=== PATIENT | female | born 1990 | race Caucasian/White ===

== ENCOUNTER 2021-03-30 12:26 | Outpatient (REF) | payer OTHER, SELFPAY ==
[2021-03-30 15:52] LABS: Alanine Aminotransferase 95 U/L (0-31); Anion Gap 14 (12-20); Aspartate Amino Transferase 88 U/L (5-31); Blood Urea Nitrogen 9 mg/dL (9-16); Calcium 9.5 mg/dL (8.4-10.2); Carbon Dioxide 22 mmol/L (22-29); Chloride 108 mmol/L (96-108); Cholesterol 241 mg/dL; Estimated Glomerular Filt Rate > 60; Glucose Fasting 87 mg/dL (60-99); HDL Cholesterol 71 mg/dL; LDL Cholesterol Calculated 129 mg/dl; Potassium 4.4 mmol/L (3.3-5.1); Sodium 140 mmol/L (135-145); Triglycerides 209 mg/dL
[2021-03-30 16:12] LABS: TSH reflex Free T4 0.52 uIU/mL (0.32-4.0); Vitamin D 25-OH Total 31.3 ng/mL (>30)
== END 2021-03-30 12:27 | disposition home or self-care (01) ==
LOC: HO.HMGCLDS 12:26
PROVIDERS: PCP Internal Medicine; Visit Provider Internal Medicine
DX: E66.01 Morbid (severe) obesity due to excess calories (principal); I10 Essential (primary) hypertension
CPT/HCPCS: 36415; 80048; 80061; 82306; 84443; 84450; 84460

== ENCOUNTER 2021-04-09 10:46 | Outpatient (REF) | payer OTHER, SELFPAY ==
[2021-04-10 04:18] LABS: HBc Num1 0.05 S/CO (0.00-0.79); HBsAGNum1 0.16 S/CO (0.00-0.99); Hepatitis B Core Antibody Nonreactive (Nonreactive); Hepatitis B Surface Antigen Negative (Negative); ~Hepatitis C Antibody Nonreactive (Nonreactive)
[2021-04-10 04:23] LABS: HBS Num1 24.43 mIU/mL (0-7.99); ~Hepatitis B Surface Antibody REACTIVE (Nonreactive)
[2021-04-11 12:19] LABS: Hepatitis A Antibody IgM 0.13 Index (0-0.79); ~Hepatitis A Antibody IgM Nonreactive (Nonreactive)
== END 2021-04-09 10:47 | disposition home or self-care (01) ==
LOC: HO.HMGCLDS 10:46
PROVIDERS: PCP Internal Medicine; Visit Provider Nurse Practitioner Family
DX: Z01.84 Encounter for antibody response examination (principal); Z11.59 Encounter for screening for other viral diseases; R74.8 Abnormal levels of other serum enzymes
CPT/HCPCS: 36415; 86704; 86706; 86709; 86803; 87340

== ENCOUNTER 2021-04-25 09:07 | Outpatient (REF) | payer OTHER, SELFPAY ==
--- NOTE | ~2021-04-25 | US_ITS ---
EXAMINATION: US ABDOMEN COMPLETE CLINICAL INFORMATION: Abnormal levels of other serum enzymes. COMPARISON: None TECHNIQUE: Real-time imaging of the abdominal viscera. FINDINGS: PANCREAS: Normal. ABDOMINAL AORTA: The proximal, mid, and distal segments are normal in caliber. INFERIOR VENA CAVA: Visualized portions are normal. LIVER: Normal. The liver is normal in size. The liver contour is normal. Parenchymal echogenicity is normal. No focal hepatic lesion. There is no intrahepatic biliary duct dilatation seen. GALLBLADDER: Normal. The gallbladder is physiologically distended without evidence of stones, sludge, polyps, wall thickening or pericholecystic fluid. COMMON BILE DUCT: Normal in caliber measuring 0.4 cm in diameter. RIGHT KIDNEY: Normal. No hydronephrosis. No renal calculi or focal parenchymal lesions. The kidney measures 10.0 cm in maximum dimension. LEFT KIDNEY: Normal. No hydronephrosis. No renal calculi or focal parenchymal lesions. The kidney measures 10.4 cm in maximum dimension. SPLEEN: Normal. The spleen measures 10.4 cm in maximum dimension. FREE FLUID: None. US/US abdomen complete IMPRESSION: No ultrasound evidence of biliary obstruction. No intra or extrahepatic biliary dilatation. Normal ultrasound.
== END 2021-04-25 09:08 | disposition home or self-care (01) ==
LOC: HO.HMGCX 09:07
PROVIDERS: PCP Internal Medicine; Visit Provider Nurse Practitioner Family
DX: R74.8 Abnormal levels of other serum enzymes (principal)
CPT/HCPCS: 76700

== ENCOUNTER → 2021-05-30 10:59 | Outpatient (BNVA) | payer OTHER, SELFPAY | PROVIDERS: PCP Internal Medicine; Visit Provider Dietitian, Registered | DX: E66.01 Morbid (severe) obesity due to excess calories (principal); Z68.41 Body mass index [BMI] 40.0-44.9, adult | CPT/HCPCS: 97802 ==

== ENCOUNTER → 2021-07-11 09:03 | Outpatient (BNVA) | payer OTHER, SELFPAY | PROVIDERS: PCP Internal Medicine; Visit Provider Dietitian, Registered | DX: E66.01 Morbid (severe) obesity due to excess calories (principal); Z68.41 Body mass index [BMI] 40.0-44.9, adult | CPT/HCPCS: 97803 ==

== ENCOUNTER 2021-07-23 15:55 | Outpatient (REF) | payer OTHER, SELFPAY | END 2021-07-23 15:56 | disposition home or self-care (01) | LOC: HO.LNP 15:55 | PROVIDERS: Visit Provider Physician Assistant | DX: J40 Bronchitis, not specified as acute or chronic (principal); Z20.822 Contact with and (suspected) exposure to COVID-19 | CPT/HCPCS: U0003; U0005 ==

== ENCOUNTER 2022-05-23 09:04 | Outpatient (REF) | payer OTHER, SELFPAY ==
[2022-05-23 12:29] LABS: Alanine Aminotransferase 18 U/L (0-31); Albumin Level 4.3 g/dL (3.5-5.0); Alkaline Phosphatase 112 U/L (39-117); Aspartate Amino Transferase 16 U/L (5-31); Bilirubin Direct 0.2 mg/dL (0.0-0.5); Bilirubin Total 0.4 mg/dL (0.0-1.0); Cholesterol 233 mg/dL; HDL Cholesterol 52 mg/dL; LDL Cholesterol Calculated 149 mg/dl; Total Protein 7.1 g/dL (6.5-8.0); Triglycerides 161 mg/dL
== END 2022-05-23 09:05 | disposition home or self-care (01) ==
LOC: HO.HMGCLDS 09:04
PROVIDERS: PCP Internal Medicine; Visit Provider Internal Medicine
DX: E78.2 Mixed hyperlipidemia (principal); F32.A Depression, unspecified; F41.9 Anxiety disorder, unspecified; R74.8 Abnormal levels of other serum enzymes
CPT/HCPCS: 36415; 80061; 80076

== ENCOUNTER → 2022-05-31 10:37 | Outpatient (BNVA) | payer OTHER, SELFPAY | PROVIDERS: PCP Internal Medicine; Visit Provider Dietitian, Registered | DX: E66.01 Morbid (severe) obesity due to excess calories (principal); Z68.41 Body mass index [BMI] 40.0-44.9, adult | CPT/HCPCS: 97803 ==

== ENCOUNTER → 2022-10-31 12:57 | Outpatient (REF) | payer OTHER, SELFPAY | LOC: HO.SL 12:57 | PROVIDERS: PCP Internal Medicine; Visit Provider Nurse Practitioner Family | DX: G47.33 Obstructive sleep apnea (adult) (pediatric) (principal); G47.19 Other hypersomnia; G47.9 Sleep disorder, unspecified; R06.83 Snoring | CPT/HCPCS: 95806 ==

== ENCOUNTER 2022-11-14 10:01 | Outpatient (REF) | payer OTHER, SELFPAY ==
[2022-11-14 13:41] LABS: Adenovirus F 40/41 Not Detected (Not Detect.); Astrovirus Not Detected (Not Detect.); Campylobacter Not Detected (Not Detect.); Cryptosporidium Not Detected (Not Detect.); Cyclospora cayetanensis Not Detected (Not Detect.); E. coli EAEC Not Detected (Not Detect.); E. coli EPEC Not Detected (Not Detect.); E. coli ETEC Not Detected (Not Detect.); E. coli STEC Not Detected (Not Detect.); Entamoeba histolytica Not Detected (Not Detect.); Giardia lamblia Not Detected (Not Detect.); Norovirus GI/GII Not Detected (Not Detect.); Plesiomonas shigelloides Not Detected (Not Detect.); Rotavirus A Not Detected (Not Detect.); Salmonella Not Detected (Not Detect.); Sapovirus Not Detected (Not Detect.); Shigella sp./EIEC Not Detected (Not Detect.); Vibrio Not Detected (Not Detect.); Vibrio Cholerae Not Detected (Not Detect.); Yersinia enterocolitica Not Detected (Not Detect.)
== END 2022-11-14 10:02 | disposition home or self-care (01) ==
LOC: HO.HMGCLNP 10:01
PROVIDERS: Nurse Practitioner Family; Visit Provider Internal Medicine
DX: R19.7 Diarrhea, unspecified (principal)
CPT/HCPCS: 87507

== ENCOUNTER 2022-12-17 13:30 | Outpatient (REF) | payer OTHER, SELFPAY ==
[2022-12-17 17:23] LABS: Alanine Aminotransferase 18 U/L (0-31); Aspartate Amino Transferase 16 U/L (5-31); Cholesterol 209 mg/dL; Glucose Fasting 96 mg/dL (60-99); HDL Cholesterol 48 mg/dL; LDL Cholesterol Calculated 136 mg/dl; Triglycerides 126 mg/dL
== END 2022-12-17 13:31 | disposition home or self-care (01) ==
LOC: HO.HMGCLDS 13:30
PROVIDERS: PCP Internal Medicine; Visit Provider Internal Medicine
DX: E66.01 Morbid (severe) obesity due to excess calories (principal); E78.2 Mixed hyperlipidemia
CPT/HCPCS: 36415; 80061; 82947; 84450; 84460

== ENCOUNTER 2022-12-17 13:49 | Outpatient (AMB) | payer OTHER, SELFPAY ==
[2022-12-17 14:04] VITALS: BP 94/62; PULSE 87; O2SAT 97; BMI 39.6
--- NOTE | 2022-12-17 14:04 | A.OFFPC_ITS ---
Vital Signs 12/17/22 14:04 Height 5 ft 1 in Weight 210 lb BMI 39.6 BP 94/62 Blood Pressure Location Rt brachial Position Sitting Pulse 87 Pulse Source Pulse Oximeter Pulse Oximetry (%) 97 Oxygen Delivery Method Room Air Intake Visit Reasons: 4 weeks ffup weight after wegovy dose adjustment Intake Note: Pt is here for 4 week f/u weiht after wegovy dose adjustment Allergies No Known Allergies Allergy (Verified 06/02/23 14:19) Medication List - Last Reconciled 12/17/22 by Holly Castillo MD escitalopram oxalate 10 mg PO DAILY escitalopram oxalate 20 mg PO DAILY Wegovy (semaglutide (weight loss)) 1 mg (0.5 mL) subcut QWEEK 30 days NS Tobacco use date assessed: 12/17/22 HPI 4 weeks ffup weight after wegovy dose adjustment HPI Details Here for follow-up regarding weight loss after starting Wegovy, now on 1 mg dose. Patient tolerating medication well, with no complaints of abdominal pain, no nausea, no vomiting. States appetite has been fairly suppressed. Has been following healthy diet. Has been exercising regularly. Has lost another 5 lb in 1 month. [facility] Medical History (Updated 06/03/23 @ 02:02 by Holly Castillo MD) Obesity (BMI 35.0-39.9 without comorbidity) Mild obstructive sleep apnea Sleeping difficulty Snoring Excessive daytime sleepiness Mixed dyslipidemia IBS (irritable bowel syndrome) Generalized anxiety disorder Surgical History [place] teeth extracted Family History Paternal Grandmother Substance use disorder Father Crohn's disease Mother Uterine cancer Social History Housing: House Alcohol intake: current Alcohol intake frequency: holidays/special occasions only Patient Tobacco Use Status: Never used Tobacco e-Cigarette/Vaping Use: Never Used service: No Current occupational status: employed Cognitive needs: No Hearing needs: No Vision needs: No Questionnaire Thrive Questionnaire Date Thrive assessed: 01/15/22 AUDIT C Alcohol Use Questionnaire (AUDIT-C) 1. How often do you have a drink containing alcohol?: Monthly or less 2. How many drinks containing alcohol do you have on a typical day when you are drinking?: 1 or 2 3. How often do you have six or more drinks on one occasion?: Never Total Score: 1 RAMO-7 AMB Questionnaire RAMO-7 Date RAMO - 7 assessed: 05/29/22 Source: Developed by Drs. Dorian Burns, Cuca Costello, Kye Loyola and colleagues, with an educational ruth from [employer]. Review of Systems Const Reports no additional complaints and Denies headache(s) ENT Denies dizziness, Denies headache(s), Denies nasal congestion, Denies nasal discharge and Denies sore throat Card Denies chest pain, Denies lightheadedness and Denies dyspnea Resp Denies chest congestion, Denies cough and Denies dyspnea GI Denies abdominal pain, Denies bloating, Denies change in bowel habits, Denies GI cramping, Reports early satiety, Denies dyspepsia, Denies heartburn and Denies nausea Reports no additional complaints Musc Reports no additional complaints Neuro Denies dizziness and Denies headache(s) Psych Reports no additional complaints Endo Reports no additional complaints Mariano/Lymph Reports no additional complaints Aller/Immun Reports no additional complaints Physical exam (Primary Care) Vital Signs: Last Vital Signs Pulse 87 12/17/22 14:04 BP 94/62 12/17/22 14:04 Pulse Ox 97 12/17/22 14:04 Oxygen Delivery Method Room Air 12/17/22 14:04 BMI result Body Mass Index 39.6 BMI Assessment/Plan discussion: High (Continue with adhering to healthy eating habits, currently on wegovy, started going to the gym twice a week) Tobacco/Smoking Status: Tobacco use Status Tobacco use date assessed 12/17/22 12/17/22 14:10 Patient Tobacco Use Status Never used Tobacco 12/17/22 14:10 e-Cigarette/Vaping Use Never Used 12/17/22 14:10 Thrive Assessment: Date of Thrive Assessment Date Thrive assessed 01/15/22 12/17/22 14:10 Const General: no acute distress and alert Nutritional Appearance: obese Orientation/consciousness: patient oriented x3 HENMT Mouth: Normal oral and palatal mucosa present and moist mucous membranes Eyes General: appearance normal, both eyes and all related structures Neck Neck: Yes full ROM, Yes no lymphadenopathy and Yes supple Resp Effort & Inspection: normal respiratory effort Auscultation: clear to auscultation bilaterally Cardio Rate: regular rate Rhythm: regular rhythm Heart sounds: S1 normal heart sound present and S2 normal heart sound present GI Palpation (GI): Soft to palpation, nontender and no masses Skin General skin exam: no rashes or lesions noted Neuro General: patient oriented x3, gait normal, moves all extremities, Normal light touch and pain sensation and no focal motor deficits Extrem General: Yes normal to inspection, Yes full ROM, Yes no joint enlargement, Yes no clubbing, cyanosis or edema and Yes normal gait Psych Appearance: grossly normal and well kempt Mental Status: mental status grossly normal Speech and movement: Normal speech and movement present Affect: normal affect Assessment and Plan Assessment & Plan (1) Morbid obesity: Code(s): E66.01 - Morbid (severe) obesity due to excess calories Plan: Increased dose of we go week to 1.7 mg subcutaneously given once a week. Continue with adhering to healthy eating habits, and getting regular exercise. Advised to call and let me know in discontinue medication if any CP abdominal pain cramping, nausea, vomiting dizziness, severe headaches occur. Schedule Follow-up in 1 month Medications: Changed From Wegovy administer weeks 9 through 12 of therapy 1 mg (0.5 mL) subcut QWEEK 30 days 2 mL 0RF NS To semaglutide (weight loss) administer weeks 9 through 12 of therapy 1.7 mg (0.75 mL) subcut QWEEK 3.75 mL 0RF 30 days Coding Level of Care Code Est Pt Level 3 (07139) Diagnoses Morbid obesity E66.01
== END 2022-12-17 15:34 | disposition home or self-care (01) ==
LOC: HO.HMGC 13:49
PROVIDERS: PCP Internal Medicine; Visit Provider Internal Medicine
DX: E66.01 Morbid (severe) obesity due to excess calories (principal); Z68.39 Body mass index [BMI] 39.0-39.9, adult
CPT/HCPCS: 99213

== ENCOUNTER 2023-04-10 09:11 | Outpatient (REF) | payer OTHER, SELFPAY ==
[2023-04-10 12:59] LABS: Alanine Aminotransferase 20 U/L (0-31); Albumin Level 4.2 g/dL (3.5-5.0); Alkaline Phosphatase 86 U/L (39-117); Anion Gap 13 (12-20); Aspartate Amino Transferase 38 U/L (5-31); Bilirubin Total 0.5 mg/dL (0.0-1.0); Blood Urea Nitrogen 14 mg/dL (9-16); Calcium 9.4 mg/dL (8.4-10.2); Carbon Dioxide 17 mmol/L (22-29); Chloride 111 mmol/L (96-108); Cholesterol 186 mg/dL; Estimated Glomerular Filt Rate > 60; Glucose Fasting 83 mg/dL (60-99); HDL Cholesterol 46 mg/dL; LDL Cholesterol Calculated 114 mg/dl; Potassium 4.2 mmol/L (3.3-5.1); Sodium 137 mmol/L (135-145); Total Protein 7.1 g/dL (6.5-8.0); Triglycerides 130 mg/dL
== END 2023-04-10 09:12 | disposition home or self-care (01) ==
LOC: HO.HMGCLDS 09:11
PROVIDERS: PCP Internal Medicine; Visit Provider Internal Medicine
DX: E66.01 Morbid (severe) obesity due to excess calories (principal); E78.2 Mixed hyperlipidemia; F32.A Depression, unspecified; F41.1 Generalized anxiety disorder
CPT/HCPCS: 36415; 80053; 80061

== ENCOUNTER 2023-04-15 08:55 | Outpatient (AMB) | payer OTHER, SELFPAY ==
--- NOTE | 2023-04-15 09:09 | MHC.PC.OV ---
Vital Signs 04/15/23 09:10 Height 5 ft 1 in Weight 199 lb BMI 37.6 BP 90/62 Blood Pressure Location Lt brachial Position Sitting Pulse 81 Pulse Source Pulse Oximeter Pulse Oximetry (%) 99 Oxygen Delivery Method Room Air Intake Visit Reasons: weigh check [facility] Intake Note: Pt is here today for her wgt in Allergies No Known Allergies Allergy (Verified 04/15/23 09:18) Medication List - Last Reconciled 04/15/23 by Holly Castillo MD escitalopram oxalate 10 mg PO DAILY escitalopram oxalate 20 mg PO DAILY semaglutide (weight loss) 2.4 mg (0.75 mL) subcut QWEEK 30 days Tobacco use date assessed: 04/15/23 Dental Screening Dental Screen Date: 04/15/23 HPI weigh check in [facility] Details 32-year-old lady with obesity, currently on Wegovy 2.4 mg subcutaneously given weekly, here today for follow-up. She lost approximately 3 lb since her last visit here a month ago. She just started enrolling in the gym and working out twice a week and still is living with her parents would, waiting for her condo to be released, and is having hard time following her diet at her parent parent's house as food is every where , per patient. Tolerating medication well, with no side effects noted. Recent fasting labs done showed lipids, fasting glucose, liver enzymes and electrolytes within normal limits. [facility]LY [facility] Medical History (Updated 04/15/23 @ 09:20 by Holly Castillo MD) Excessive daytime sleepiness Generalized anxiety disorder IBS (irritable bowel syndrome) Mild obstructive sleep apnea Mixed dyslipidemia Morbid obesity Obesity (BMI 35.0-39.9 without comorbidity) Sleeping difficulty Snoring Surgical History [place] teeth extracted Family History Paternal Grandmother Substance use disorder Father Crohn's disease Mother Uterine cancer Social History Housing: House Alcohol intake: current Alcohol intake frequency: holidays/special occasions only Patient Tobacco Use Status: Never used Tobacco e-Cigarette/Vaping Use: Never Used service: No Current occupational status: employed Cognitive needs: No Hearing needs: No Vision needs: No Questionnaire Thrive Questionnaire Date Thrive assessed: 04/15/23 I am a: Patient What is your living situation today?: I have a steady place to live Within the past 12 months, did the food you bought not last and you didn't have the money to get more?: Never true Within the past 12 months, did you worry whether your food would run out before you got money to buy more?: Never true Do you have trouble paying for medicines?: No Do you have trouble getting transportation to medical appointments?: No Do you have trouble paying your heating and electricity bill?: No Do you have trouble taking care of your child, family member or friend?: No Do you have trouble with day-to-day activities such as bathing, preparing meals, shopping, managing finances, etc.?: No Are you currently unemployed and looking for a job?: No Are you interested in more education?: No RAMO-7 AMB Questionnaire RAMO-7 Date RAMO - 7 assessed: 05/29/22 Source: Developed by Drs. Dorian Burns, Cuca Costello, Kye Loyola and colleagues, with an educational ruth from [employer]. Review of Systems Const All systems reviewed & are unremarkable except as noted in HPI and below Denies fatigue, Denies fever(s) and Denies lethargy ENT Denies dizziness, Denies nasal congestion, Denies nasal discharge and Denies sore throat Card Denies chest pain, Denies lightheadedness and Denies dyspnea Resp Denies chest congestion, Denies cough and Denies dyspnea GI Denies abdominal pain, Denies change in bowel habits, Denies dyspepsia, Denies heartburn and Denies nausea Musc Reports no additional complaints Neuro Denies dizziness Psych Reports no additional complaints Endo Denies fatigue Physical exam (Primary Care) Vital Signs: Last Vital Signs Pulse 81 04/15/23 09:10 BP 90/62 04/15/23 09:10 Pulse Ox 99 04/15/23 09:10 Oxygen Delivery Method Room Air 04/15/23 09:10 BMI result Body Mass Index 37.6 BMI Assessment/Plan discussion: High (Continue with adhering to healthy eating habits, currently on wegovy, started going to the gym twice a week) Tobacco/Smoking Status: Tobacco use Status Tobacco use date assessed 04/15/23 04/15/23 09:15 Patient Tobacco Use Status Never used Tobacco 04/15/23 09:15 e-Cigarette/Vaping Use Never Used 04/15/23 09:15 Thrive Assessment: Date of Thrive Assessment Date Thrive assessed 01/15/22 04/15/23 09:15 Const General: no acute distress and alert Nutritional Appearance: obese Orientation/consciousness: patient oriented x3 HENMT Mouth: Normal oral and palatal mucosa present and moist mucous membranes Eyes General: appearance normal, both eyes and all related structures Neck Neck: Yes full ROM, Yes no lymphadenopathy and Yes supple Resp Effort & Inspection: normal respiratory effort Auscultation: clear to auscultation bilaterally Cardio Rate: regular rate Rhythm: regular rhythm Heart sounds: S1 normal heart sound present and S2 normal heart sound present GI Palpation (GI): Soft to palpation, nontender and no masses Auscultation: normal bowel sounds Neuro General: patient oriented x3, gait normal, moves all extremities, Normal light touch and pain sensation and no focal motor deficits Results Reviewed Results Reviewed: ENTERED: 04/10/[address]: ORDERED: CMP Fast, Lipid Panel Test Result Flag Reference Site Sodium 137 135-145 mmol/L Potassium 4.2 3.3-5.1 mmol/L CL 111 H 96-108 mmol/L CO2 17 L 22-29 mmol/L Gap 13 12-20 BUN 14 9-16 mg/dL Creat 0.83 0.5-1.4 mg/dL EGFR > 60 NOTE: For -Serbian individuals, multiply the result by 1.210. Chronic Kidney Disease: Estimated GFR < 60 mL/min/1.73m2 Severe Kidney Disease: Estimated GFR < 15 mL/min/1.73m2 FBS 83 60-99 mg/dL CA 9.4 8.4-10.2 mg/dL Total Bili 0.5 0.0-1.0 mg/dL AST (GOT) 38 H 5-31 U/L ALT (GPT) 20 0-31 U/L Protein, Total 7.1 6.5-8.0 g/dL Alb 4.2 3.5-5.0 g/dL Triglyceride 130 mg/dL Desirable Triglyceride: less than 150 mg/dL Borderline High Triglyceride 150-199 mg/dL High Triglyceride: 200-499 mg/dL Very High Triglyceride: greater than or equal to 5OO mg/dL Chol 186 mg/dL Desirable Cholesterol: less than 200 mg/dL Borderline High Cholesterol: 200-239 mg/dL High Cholesterol: greater than 239 mg/dL LDL Calculated 114 mg/dl Desirable LDL: less than 100 mg/dL Near Optimal/Above Optimal LDL: 110-129 mg/dL Borderline High LDL: 130-159 mg/dL High LDL: 160-189 mg/dL Very High LDL: greater than or equal to 190 mg/dL HDL 46 mg/dL Desirable HDL: greater than 40 mg/dL Note: This HDL assay may give artificially low results in patients with liver disease. Alk Phos 86 39-117 U/L Assessment and Plan Assessment & Plan (1) Obesity (BMI 35.0-39.9 without comorbidity): Code(s): E66.9 - Obesity, unspecified Plan: Continue on Wegovy 2.4 mg subcutaneously given weekly, in addition to adhering to healthy eating habits and getting regular exercise, just started going to the gym twice a week. Will see her back for her physical scheduled for 06/04/2023 Coding Level of Care Code Est Pt Level 3 (19812) Diagnoses Obesity (BMI 35.0-39.9 without comorbidity) E66.9
[2023-04-15 09:10] VITALS: BP 90/62; PULSE 81; O2SAT 99; BMI 37.6
== END 2023-04-15 10:13 | disposition home or self-care (01) ==
PROVIDERS: PCP Internal Medicine; Visit Provider Internal Medicine
DX: E66.9 Obesity, unspecified (principal); Z68.37 Body mass index [BMI] 37.0-37.9, adult
CPT/HCPCS: 99213

== ENCOUNTER 2023-05-29 08:54 | Outpatient (AMB) | payer OTHER, SELFPAY ==
--- NOTE | 2023-05-29 08:59 | A.OFFVIS_ITS ---
Intake Vital Signs 05/29/23 09:01 Weight 195 lb BP 118/72 Blood Pressure Location Lt brachial Position Sitting Pulse 71 Pulse Source Pulse Oximeter Pulse Oximetry (%) 95 Oxygen Delivery Method Room Air Intake Visit Reasons: follow up - LVM Intake Note: F/U Sleep issues Manager Radio Required: No Allergies No Known Allergies Allergy (Verified 05/29/23 09:00) HPI HPI Comments History of Present Illness Details 32 y/o female patient presents for follo w up of sleep study. The home sleep study result was significant for a mild degree of sleep apnea. The AHI was 5/hr and oxygen venessa was 85%. Pt reports that she sleeps ok, about 6-7 hrs, but feels tired all the time. She goes to bed around 9 pm but takes time to fall asleep. She watches TV and uses phone before bedtime. She is on Wegovy, and lost more than 30 lb over the last 6 months. REPLACED BY [facility] Medical History Obesity (BMI 35.0-39.9 without comorbidity) Mild obstructive sleep apnea Sleeping difficulty Snoring Excessive daytime sleepiness Mixed dyslipidemia IBS (irritable bowel syndrome) Morbid obesity Generalized anxiety disorder Surgical History [place] teeth extracted Family History Paternal Grandmother Substance use disorder Father Crohn's disease Mother Uterine cancer Social History Housing: House Alcohol intake: current Alcohol intake frequency: holidays/special occasions only Patient Tobacco Use Status: Never used Tobacco e-Cigarette/Vaping Use: Never Used service: No Current occupational status: employed Cognitive needs: No Hearing needs: No Vision needs: No Review of Systems Const All systems reviewed & are unremarkable except as noted in HPI and below ENT Reports Normal hearing present Neuro Reports Normal hearing present Physical Exam Vital Signs: Last Vital Signs Pulse 71 05/29/23 09:01 BP 118/72 05/29/23 09:01 Pulse Ox 95 05/29/23 09:01 Oxygen Delivery Method Room Air 05/29/23 09:01 Const General: cooperative and comfortable Nutritional Appearance: obese Orientation/consciousness: patient oriented x3 Limitations: no limitations HEENT Teeth and gingiva: other (mallampati grade 4) Neck Neck: Yes full ROM and Yes supple Resp Effort & Inspection: normal respiratory effort and able to speak in complete sentences Neuro General: patient oriented x3, gait normal and moves all extremities Cranial nerves: Yes Bilaterally intact EOM present, Yes Normal facial strength present, Yes Midline tongue present, Yes Symmetric palate elevation present, Yes Normal hearing present, Yes Ability to bilaterally rotate head present and Yes Ability to bilaterally elevate shoulders present Cognition (Neuro): normal cognition Gait exam (Neuro): Normal gait present Psych Appearance: grossly normal Mental Status: mental status grossly normal Speech and movement: Normal speech and movement present Affect: normal affect Attitude: cooperative Assessment & Plan Assessment & Plan (1) Excessive daytime sleepiness: Code(s): G47.19 - Other hypersomnia (2) LOTTIE (obstructive sleep apnea): Comment: Mild degree of sleep apnea. The AHI was 5/hr and oxygen venessa was 85% Code(s): G47.33 - Obstructive sleep apnea (adult) (pediatric) Plan Advised patient to start APAP [id number]. Advised patient to intake enough protein, and try magnesium glycinate 200 mg-400 mg qHS. May try vitamin D3 supplement for fatigue. Coding Level of Care Code Est Pt Level 3 (77826) Diagnoses Excessive daytime sleepiness G47.19 LOTTIE (obstructive sleep apnea) G47.33
[2023-05-29 09:01] VITALS: BP 118/72; PULSE 71; O2SAT 95
== END 2023-05-29 09:19 | disposition home or self-care (01) ==
PROVIDERS: PCP Internal Medicine; Visit Provider Nurse Practitioner Family
DX: G47.19 Other hypersomnia (principal); G47.33 Obstructive sleep apnea (adult) (pediatric)
CPT/HCPCS: 99213

== ENCOUNTER → 2023-05-29 08:54 | Outpatient (BNVA) | payer OTHER, SELFPAY | PROVIDERS: PCP Internal Medicine; Visit Provider Nurse Practitioner Family ==

== ENCOUNTER 2023-06-02 13:29 | Outpatient (AMB) | payer OTHER, SELFPAY ==
--- NOTE | 2023-06-02 14:08 | A.OFFPC_ITS ---
Vital Signs 06/02/23 14:09 Height 5 ft 1 in Weight 196 lb BMI 37.0 BP 94/64 Blood Pressure Location Lt brachial Position Sitting Pulse 67 Pulse Source Pulse Oximeter Pulse Oximetry (%) 98 Oxygen Delivery Method Room Air Intake Visit Reasons: PE Intake Note: Pt is here today for her PE Is last menstrual period known: Yes Last menstrual period: 05/30/23 Allergies No Known Allergies Allergy (Verified 06/02/23 14:19) Medication List - Last Reconciled 06/02/23 by Holly Castillo MD escitalopram oxalate 10 mg PO DAILY escitalopram oxalate 20 mg PO DAILY semaglutide (weight loss) 2.4 mg (0.75 mL) subcut QWEEK 30 days Tobacco use date assessed: 06/02/23 Dental Screening Dental Screen Date: 06/02/23 Did you have a dental visit in the last 12 months?: Yes Did you have a dental problem in the last 6 months where you did not have access to dental care?: No Was dental information given to patient?: Patient has dentist HPI PE HPI Details 32-year-old lady with obesity, and mixed dyslipidemia and generalized anxiety disorder, here today for her physical exam. She is currently being seen at the sleep clinic in [place] for evaluation of her obstructive sleep apnea, still having difficulty with sleeping and wakes up not feeling rested. She continues to be on we go be, but her weight loss has started to level off despite getting regular exercise, works with a equestrian trainer and following recommended diet. She sees [facility] and is up-to-date with her cervical cancer screening and Pap smear. [facility] Medical History (Updated 06/03/23 @ 02:02 by Holly Castillo MD) Obesity (BMI 35.0-39.9 without comorbidity) Mild obstructive sleep apnea Sleeping difficulty Snoring Excessive daytime sleepiness Mixed dyslipidemia IBS (irritable bowel syndrome) Generalized anxiety disorder Surgical History [place] teeth extracted Family History Paternal Grandmother Substance use disorder Father Crohn's disease Mother Uterine cancer Social History Housing: House Alcohol intake: current Alcohol intake frequency: holidays/special occasions only Patient Tobacco Use Status: Never used Tobacco e-Cigarette/Vaping Use: Never Used service: No Current occupational status: employed Cognitive needs: No Hearing needs: No Vision needs: No Female Reproductive History Menstrual Date of last menstrual period: 05/30/23 Questionnaire PHQ-9 Over the last 2 weeks, how often have you been bothered by any of the following problems? 1. Little interest or pleasure in doing things: not at all 2. Feeling down, depressed, or hopeless: not at all 3. Trouble falling or staying asleep, or sleeping too much: several days 4. Feeling tired or having little energy: not at all 5. Poor appetite or overeating: not at all 6. Feeling bad about yourself - or that you are a failure or have let yourself or your family down: not at all 7. Trouble concentrating on things, such as reading the newspaper or watching television: not at all 8. Moving or speaking so slowly that other people could have noticed. Or the op posite - being so fidgety or restless that you have been moving around a lot more than usual: not at all 9. Thoughts that you would be better off or of hurting yourself in some way: not at all Total score: 1 Depression Screening Interpretation: Positive Depression Screening Follow-up: Existing condition and In treatment Source: Developed by Drs. Dorian Burns, Cuca Costello, Kye Loyola and colleagues, with an educational ruth from [employer] Thrive Questionnaire Date Thrive assessed: 04/15/23 AUDIT C Alcohol Use Questionnaire (AUDIT-C) 1. How often do you have a drink containing alcohol?: Never Total Score: 0 RAMO-7 AMB Questionnaire RAMO-7 Date RAMO - 7 assessed: 06/02/23 Feeling nervous, anxious, or on edge: 0 = Not at all Not being able to stop or control worryin = Not at all Worrying too much about different things: 0 = Not at all Trouble relaxin = Not at all Being so restless that it is hard to sit still: 0 = Not at all Becoming easily annoyed or irritable: 0 = Not at all Feeling afraid as if something awful might happen: 0 = Not at all Total RAMO-7 score (0-4 normal; 5-9 mild; 10-14 moderate; 15-21 severe): 0 Source: Developed by Drs. Dorian Burns, Cuca Costello, Kye Loyola and colleagues, with an educational ruth from [employer] RAMO-7 Assessment Billing RAMO-7 Assessment Tool: RAMO-7 Assessment 01600 Review of Systems Const Reports no additional complaints and Denies headache(s) Eyes Denies change in vision ENT Denies dizziness, Denies headache(s), Denies nasal congestion, Denies nasal discharge and Denies sore throat Card Denies chest pain, Denies lightheadedness and Denies dyspnea Resp Denies chest congestion, Denies cough and Denies dyspnea GI Denies abdominal pain, Denies change in bowel habits, Denies dyspepsia, Denies heartburn and Denies nausea Reports no additional complaints Musc Reports no additional complaints Skin/Breast Denies breast pain, Denies breast mass and Denies rash Neuro Denies dizziness and Denies headache(s) Psych Reports no additional complaints Endo Reports no additional complaints Mariano/Lymph Reports no additional complaints Aller/Immun Reports no additional complaints Physical exam (Primary Care) Vital Signs: Last Vital Signs Pulse 67 06/02/23 14:09 BP 94/64 06/02/23 14:09 Pulse Ox 98 06/02/23 14:09 Oxygen Delivery Method Room Air 06/02/23 14:09 BMI result Body Mass Index 37.0 BMI Assessment/Plan discussion: High (Continue with adhering to healthy eating habits, currently on wegovy, started going to the gym twice a week) Tobacco/Smoking Status: Tobacco use Status Tobacco use date assessed 06/02/23 06/02/23 14:13 Patient Tobacco Use Status Never used Tobacco 06/02/23 14:13 e-Cigarette/Vaping Use Never Used 06/02/23 14:13 Depression Screening Interpretation: Positive Depression Screening Follow-up: Existing condition and In treatment Thrive Assessment: Date of Thrive Assessment Date Thrive assessed 04/15/23 06/02/23 14:13 Const General: no acute distress and alert Nutritional Appearance: obese Orientation/consciousness: patient oriented x3 HENMT Mouth: Normal oral and palatal mucosa present and moist mucous membranes Eyes General: appearance normal, both eyes and all related structures Neck Neck: Yes full ROM, Yes no lymphadenopathy and Yes supple Resp Effort & Inspection: normal respiratory effort Auscultation: clear to auscultation bilaterally Cardio Rate: regular rate Rhythm: regular rhythm Heart sounds: S1 normal heart sound present and S2 normal heart sound present GI Palpation (GI): Soft to palpation, nontender and no masses Auscultation: normal bowel sounds General: Yes no CVA tenderness and Yes deferred (Sees [facility]) Back/Spine/Pelvis Back: no CVA tenderness and No back tenderness Skin General skin exam: no rashes or lesions noted Neuro General: patient oriented x3, gait normal, moves all extremities, Normal light touch and pain sensation and no focal motor deficits Extrem General: Yes normal to inspection, Yes full ROM, Yes no joint enlargement, Yes no clubbing, cyanosis or edema and Yes normal gait Psych Appearance: grossly normal and well kempt Mental Status: mental status grossly normal Speech and movement: Normal speech and movement present Affect: normal affect Results Reviewed Results Reviewed: RUN: 06/02/23 1413 PAGE 1 [facility] [address] [place] [id number] Active Directory Systems Administrator: Charlie Hairston M.D. Specimen Inquiry Name: Beverley Martínez Age/Sex: 32/F : 1990 Unit#: [id number] Attend Dr: Holly Castillo MD Re04/10/23 Status: DEP [facility] Disch: SPEC : [id number] NOAH: 04/10/23 STATUS: COMP REQ : [id number] RECD: 04/10/[address]: Holly Castillo MD COMP: 04/10/231259 ENTERED: 04/10/[address]: ORDERED: CMP Fast, Lipid Panel Test Result Flag Reference Site Sodium 137 135-145 mmol/L Potassium 4.2 3.3-5.1 mmol/L CL 111 H 96-108 mmol/L CO2 17 L 22-29 mmol/L Gap 13 12-20 BUN 14 9-16 mg/dL Creat 0.83 0.5-1.4 mg/dL EGFR > 60 NOTE: For -[place] individuals, multiply the result by 1.210. Chronic Kidney Disease: Estimated GFR < 60 mL/min/1.73m2 Severe Kidney Disease: Estimated GFR < 15 mL/min/1.73m2 FBS 83 60-99 mg/dL CA 9.4 8.4-10.2 mg/dL Total Bili 0.5 0.0-1.0 mg/dL AST (GOT) 38 H 5-31 U/L ALT (GPT) 20 0-31 U/L Protein, Total 7.1 6.5-8.0 g/dL Alb 4.2 3.5-5.0 g/dL Triglyceride 130 mg/dL Desirable Triglyceride: less than 150 mg/dL Borderline High Triglyceride 150-199 mg/dL High Triglyceride: 200-499 mg/dL Very High Triglyceride: greater than or equal to 5OO mg/dL Chol 186 mg/dL Desirable Cholesterol: less than 200 mg/dL Borderline High Cholesterol: 200-239 mg/dL High Cholesterol: greater than 239 mg/dL LDL Calculated 114 mg/dl Desirable LDL: less than 100 mg/dL Near Optimal/Above Optimal LDL: 110-129 mg/dL Borderline High LDL: 130-159 mg/dL High LDL: 160-189 mg/dL Very High LDL: greater than or equal to 190 mg/dL HDL 46 mg/dL Desirable HDL: greater than 40 mg/dL Note: This HDL assay may give artificially low results in patients with liver disease. Alk Phos 86 39-117 U/L Assessment and Plan Assessment & Plan (1) LOTTIE (obstructive sleep apnea): Comment: Mild degree of sleep apnea. The AHI was 5/hr and oxygen venessa was 85% Code(s): G47.33 - Obstructive sleep apnea (adult) (pediatric) Plan: [place] [facility] [place] (2) Obesity (BMI 35.0-39.9 without comorbidity): Code(s): E66.9 - Obesity, unspecified Plan: Continue with go be, in addition to adhering to recommended diet and regular exercise (3) Mixed dyslipidemia: Code(s): E78.2 - Mixed hyperlipidemia Plan: Reviewed recent fasting lipid profile with patient with levels within normal limits . Continue with adherence to low-cholesterol diet and regular exercise, at least 30 minutes 3 to 4 times a week. Advised patient to make healthy food choices, eat more fruits, vegetables, whole grains, wild caught fish and low-fat dairy. Limit amount of meat and fried or fatty food products, as well as processed foods and fast foods. (4) Generalized anxiety disorder: Code(s): F41.1 - Generalized anxiety disorder Plan: Stable controlled on escitalopram (5) Annual visit for general adult medical examination with abnormal findings: Code(s): Z00.01 - Encounter for general adult medical examination with abnormal findings Plan: Reviewed recent fasting labs results patient. Continue with regular dental visit every 6 months and regular eye exams, at least every 2 years. Take adequate calcium in diet and vitamin-D 3 at 2000 IU per cap once a day, in addition to weight-bearing exercises to help maintain good muscle tone and weight control. Instructed to do self-breast exam, up-to-date with her cervical cancer screening and pelvic exam, goes to [facility].. Reminded to get her flu shot, this year as well as her COVID booster, up-to-date with Tdap Coding Level of Care Code Est Pt Prev Care 18-39y(95396) Diagnoses LOTTIE (obstructive sleep apnea) G47.33 Obesity (BMI 35.0-39.9 without comorbidity) E66.9 Mixed dyslipidemia E78.2 Generalized anxiety disorder F41.1 Annual visit for general adult medical examination with abnormal findings Z00.01 Additional Codes RAMO-7 Assessment Billing - RAMO-7 Assessment Tool: RAMO-7 Assessment 75299 ([id number])
[2023-06-02 14:09] VITALS: BP 94/64; PULSE 67; O2SAT 98; BMI 37.0
== END 2023-06-02 16:09 | disposition home or self-care (01) ==
PROVIDERS: Visit Provider Internal Medicine
DX: Z00.00 Encounter for general adult medical examination without abnormal findings (principal); G47.33 Obstructive sleep apnea (adult) (pediatric); E66.9 Obesity, unspecified; Z68.37 Body mass index [BMI] 37.0-37.9, adult; E78.2 Mixed hyperlipidemia; F41.1 Generalized anxiety disorder
CPT/HCPCS: 99395

== ENCOUNTER 2023-12-01 10:49 | Outpatient (AMB) | payer OTHER, SELFPAY ==
[2023-12-01 11:36] VITALS: BP 98/68; PULSE 98; O2SAT 97; BMI 34.8
--- NOTE | 2023-12-01 11:36 | MHC.PC.OV ---
Vital Signs 12/01/23 11:36 Height 5 ft 1 in Weight 184 lb BMI 34.8 BP 98/68 Blood Pressure Location Rt brachial Position Sitting Pulse 98 Pulse Source Pulse Oximeter Pulse Oximetry (%) 97 Oxygen Delivery Method Room Air Intake Visit Reasons: 6 month follow up Allergies No Known Allergies Allergy (Verified 12/01/23 11:55) Medication List - Last Reconciled 12/01/23 by Holly Castillo MD escitalopram oxalate 20 mg PO DAILY escitalopram oxalate 10 mg PO DAILY magnesium glycinate mg PO semaglutide (weight loss) 2.4 mg (0.75 mL) subcut QWEEK 30 days Tobacco use date assessed: 12/01/23 Dental Screening Dental Screen Date: 12/01/23 Did you have a dental visit in the last 12 months?: Yes Did you have a dental problem in the last 6 months where you did not have access to dental care?: No Was dental information given to patient?: Patient has dentist HPI 6 month follow up HPI Details 32-year-old lady here today for follow-up. Currently on Wegovy 2.4 mg injected once weekly, started 07/18/2022, has lost about 12 lb since last seen May 2023. Tolerating medication well, with no adverse effects reported. Is also here complaining of pain in her left ear accompanied by nasal congestion, rhinorrhea and postnasal drip, present for the last 10 days. Has been taking akoy-zeb-tupvcut DayQuil/ NyQuil with no improvement of symptoms. Denies having any fever, no chills, no shortness of breath, no facial pain . [facility] Medical History Obesity (BMI 35.0-39.9 without comorbidity) Mild obstructive sleep apnea Sleeping difficulty Snoring Excessive daytime sleepiness Mixed dyslipidemia IBS (irritable bowel syndrome) Generalized anxiety disorder Surgical History [place] teeth extracted Family History Paternal Grandmother Substance use disorder Father Crohn's disease Mother Uterine cancer Social History Housing: House Alcohol intake: current Alcohol intake frequency: holidays/special occasions only Patient Tobacco Use Status: Never used Tobacco e-Cigarette/Vaping Use: Never Used service: No Current occupational status: employed Cognitive needs: No Hearing needs: No Vision needs: No Questionnaire Thrive Questionnaire Date Thrive assessed: 04/15/23 RAMO-7 AMB Questionnaire RAMO-7 Date RAMO - 7 assessed: 06/02/23 Source: Developed by Drs. Dorian Burns, Cuca Costello, Kye Loyola and colleagues, with an educational ruht from [employer]. Review of Systems Const Reports weight loss Eyes Denies change in vision ENT Reports as per HPI and Reports otalgia (Left) Card Reports no additional complaints Resp Reports as per HPI and Denies cough GI Reports no additional complaints Physical exam (Primary Care) Vital Signs: Last Vital Signs Pulse 98 12/01/23 11:36 BP 98/68 12/01/23 11:36 Pulse Ox 97 12/01/23 11:36 Oxygen Delivery Method Room Air 12/01/23 11:36 BMI result Body Mass Index 34.8 Tobacco/Smoking Status: Tobacco use Status Tobacco use date assessed 12/01/23 12/01/23 11:40 Patient Tobacco Use Status Never used Tobacco 12/01/23 11:40 e-Cigarette/Vaping Use Never Used 12/01/23 11:40 Thrive Assessment: Date of Thrive Assessment Date Thrive assessed 04/15/23 12/01/23 11:40 Const General: no acute distress and alert Nutritional Appearance: obese Orientation/consciousness: patient oriented x3 HENMT Other: Erythema and mild swelling in left external auditory canal, mildly erythematous and bulging tympanic membrane on the left, no cerumen or discharge seen Head: Yes normocephalic General nose exam: Normal external nose present, Normal nares present, No nasal discharge present and Abnormal mucous membranes and turbinates present erythematous bilateral Face and sinus: No sinus tenderness Mouth: Normal oral and palatal mucosa present, oropharynx normal and moist mucous membranes Eyes General: appearance normal, both eyes and all related structures Neck Neck: Yes full ROM, Yes no lymphadenopathy and Yes supple Resp Auscultation: clear to auscultation bilaterally Cardio Other: S1-S2 present regular rate and rhythm GI Inspection: Yes normal to inspection Palpation (GI): Soft to palpation, nontender and no masses Neuro General: patient oriented x3 Psych Appearance: grossly normal and well kempt Mental Status: mental status grossly normal Speech and movement: Normal speech and movement present Affect: normal affect Assessment and Plan Assessment & Plan (1) Obesity (BMI 35.0-39.9 without comorbidity): Code(s): E66.9 - Obesity, unspecified Plan: Has been compliant with diet, exercise, has lost approximately 12 lb since last visit in May 2023, will continue on Wegovy at 2.4 mg , advised to try decreasing dosing frequency to every 2 weeks, goal weight is at least 170 lbs. (2) Acute otitis media: Code(s): H66.90 - Otitis media, unspecified, unspecified ear Qualifiers: Otitis media type: unspecified Qualified Code(s): H66.90 - Otitis media, unspecified, unspecified ear Plan: Prescription sent for Augmentin 875 mg to take 1 every 12 hours for 10 days, take it with food. Advised to try taking for fexofenadine-pseudoephedrine 60-120 mg tablet 1 tablet once a day in a.m. as needed for nasal congestion, return to clinic if no improvement of symptoms after a week Medications: New amoxicillin-pot clavulanate 875-125 mg 1 tab PO Q12H 10 days 20 tabs 0RF fexofenadine-pseudoephedrine 60-120 mg ER (Allergy Relief-D (fexofenadine)) 1 tab PO Q12H PRN 14 tabs 0RF allergy symptoms/nasal congestion Refilled semaglutide (weight loss) administer weeks 9 through 12 of therapy 2.4 mg (0.75 mL) subcut QWEEK 30 days 3.75 mL 3RF Coding Level of Care Code Est Pt Level 4 (08368) Diagnoses Obesity (BMI 35.0-39.9 without comorbidity) E66.9 Acute otitis media, unspecified otitis media type H66.90 Otitis media type: unspecified
== END 2023-12-01 16:33 | disposition home or self-care (01) ==
PROVIDERS: PCP Internal Medicine; Visit Provider Internal Medicine
DX: H66.90 Otitis media, unspecified, unspecified ear (principal); E66.9 Obesity, unspecified; Z68.34 Body mass index [BMI] 34.0-34.9, adult
CPT/HCPCS: 99214

== ENCOUNTER 2024-06-15 10:46 | Outpatient (AMB) | payer OTHER, SELFPAY ==
--- NOTE | 2024-06-15 11:05 | A.OFFPC_ITS ---
Vital Signs 06/15/24 11:27 Height 5 ft 1 in Weight 181 lb BMI 34.2 BP 94/62 Blood Pressure Location Lt brachial Position Sitting Pulse 70 Pulse Source Pulse Oximeter Pulse Oximetry (%) 97 Oxygen Delivery Method Room Air Intake Visit Reasons: PE Intake Note: Pt is here today for her PE Is last menstrual period known: Yes Last menstrual period: 06/02/24 Allergies No Known Allergies Allergy (Verified 12/01/23 11:55) Medication List - Last Reconciled 06/17/24 by Holly Castillo MD escitalopram oxalate 20 mg PO DAILY escitalopram oxalate 10 mg PO DAILY ropinirole 0.25 mg PO BEDTIME semaglutide (weight loss) 2.4 mg (0.75 mL) subcut QWEEK 30 days Tobacco use date assessed: 06/15/24 Dental Screening Dental Screen Date: 06/15/24 Did you have a dental visit in the last 12 months?: Yes Did you have a dental problem in the last 6 months where you did not have access to dental care?: No Was dental information given to patient?: Patient has dentist HPI PE HPI Details 33-year-old lady here today for physical exam. She is currently taking semaglutide for help with weight loss. Has lost approximately 56 lb since starting medication but has now plateaued with her weight. She takes escitalopram for her generalized anxiety disorder which has been helping. She had a sleep study which was inconclusive for sleep apnea. However complains of disturbed sleep as her legs start aching and she has to keep moving them at night. She sees her Ob at [facility] for her routine Pap and pelvic exam. [facility] Medical History (Updated 06/15/24 @ 12:02 by Holly Castillo MD) Restless leg syndrome Obesity (BMI 35.0-39.9 without comorbidity) Mild obstructive sleep apnea Sleeping difficulty Snoring Excessive daytime sleepiness Mixed dyslipidemia IBS (irritable bowel syndrome) Generalized anxiety disorder Surgical History Pom[place] teeth extracted Family History Paternal Grandmother Substance use disorder Father Crohn's disease Mother Uterine cancer Social History Housing: House Alcohol intake: current Alcohol intake frequency: holidays/special occasions only Patient Tobacco Use Status: Never used Tobacco e-Cigarette/Vaping Use: Never Used service: No Current occupational status: employed Cognitive needs: No Hearing needs: No Vision needs: No Female Reproductive History Menstrual Date of last menstrual period: 06/02/24 Questionnaire PHQ-9 Over the last 2 weeks, how often have you been bothered by any of the following problems? 1. Little interest or pleasure in doing things: not at all 2. Feeling down, depressed, or hopeless: not at all 3. Trouble falling or staying asleep, or sleeping too much: not at all 4. Feeling tired or having little energy: nearly every day 5. Poor appetite or overeating: not at all 6. Feeling bad about yourself - or that you are a failure or have let yourself or your family down: not at all 7. Trouble concentrating on things, such as reading the newspaper or watching television: not at all 8. Moving or speaking so slowly that other people could have noticed. Or the opposite - being so fidgety or restless that you have been moving around a lot more than usual: not at all 9. Thoughts that you would be better off or of hurting yourself in some way: not at all Total score: 3 Depression Screening Interpretation: Negative Depression Screening Done: Yes 45538 - PHQ-9 Billing: Yes Source: Developed by Drs. Dorian Burns, Cuca Costello, Kye Loyola and colleagues, with an educational ruth from [employer]. Thrive Questionnaire Date Thrive assessed: 06/15/24 I am a: Patient What is your living situation today?: I have a steady place to live Within the past 12 months, did the food you bought not last and you didn't have the money to get more?: Never true Within the past 12 months, did you worry whether your food would run out before you got money to buy more?: Never true Do you have trouble paying for medicines?: No Do you have trouble getting transportation to medical appointments?: No Do you have trouble paying your heating and electricity bill?: No Do you have trouble taking care of your child, family member or friend?: No Do you have trouble with day-to-day activities such as bathing, preparing meals, shopping, managing finances, etc.?: No Are you interested in more education?: No Please select the resources that you would like help with: None Currently or been in a relationship where the following occur: No concerns reported THRIVE Score: 0 AUDIT C Alcohol Use Questionnaire (AUDIT-C) 1. How often do you have a drink containing alcohol?: 2-4 times a month 2. How many drinks containing alcohol do you have on a typical day when you are drinking?: 1 or 2 3. How often do you have six or more drinks on one occasion?: Never Total Score: 2 RAMO-7 AMB Questionnaire RAMO-7 Date RAMO - 7 assessed: 06/15/24 Feeling nervous, anxious, or on edge: 1 = Several days Not being able to stop or control worryin = Several days Worrying too much about different things: 1 = Several days Trouble relaxin = Not at all Being so restless that it is hard to sit still: 0 = Not at all Becoming easily annoyed or irritable: 1 = Several days Feeling afraid as if something awful might happen: 0 = Not at all Total RAMO-7 score (0-4 normal; 5-9 mild; 10-14 moderate; 15-21 severe): 4 Source: Developed by Drs. Dorian Burns, Cuca Costello, Kye Loyola and colleagues, with an educational ruth from [employer]. RAMO-7 Assessment Billing RAMO-7 Assessment Tool: RAMO-7 Assessment 36576 Review of Systems Const Reports no additional complaints, Denies fatigue, Denies headache(s) and Denies weakness Eyes Denies change in vision and Denies itchy eyes ENT Denies dizziness and Denies headache(s) Card Reports no additional complaints and Denies palpitations Resp Denies cough and Denies wheezing GI Reports no additional complaints Denies hematuria, Denies urinary frequency, Denies dysuria and Denies urinary urgency Musc Reports no additional complaints Skin/Breast Denies breast pain, Denies breast mass, Denies lesions and Denies rash Neuro Denies dizziness, Denies headache(s) and Denies weakness Psych Reports no additional complaints Endo Denies fatigue, Denies polydipsia, Denies polyuria and Denies palpitations Mariano/Lymph Denies easy bruising Aller/Immun Denies itchy eyes, Denies seasonal rhinorrhea and Denies wheezing Physical exam (Primary Care) Vital Signs: Last Vital Signs Pulse 70 06/15/24 11:27 BP 94/62 06/15/24 11:27 Pulse Ox 97 06/15/24 11:27 Oxygen Delivery Method Room Air 06/15/24 11:27 BMI result Body Mass Index 34.2 Tobacco/Smoking Status: Tobacco use Status Tobacco use date assessed 06/15/24 06/15/24 11:07 Patient Tobacco Use Status Never used Tobacco 06/15/24 11:07 e-Cigarette/Vaping Use Never Used 06/15/24 11:07 PHQ-9: PHQ-9 Score PHQ-9: Total score 3 06/15/24 12:14 Depression Screening Interpretation: Negative Thrive Assessment: Date of Thrive Assessment Date Thrive assessed 06/15/24 06/15/24 11:07 Currently or been in a relationship where the following occur: No concerns reported Const General: no acute distress and alert Nutritional Appearance: obese Orientation/consciousness: patient oriented x3 HENMT Head: Yes normocephalic General nose exam: Normal external nose present and Normal nares present Mouth: Normal oral and palatal mucosa present, oropharynx normal and moist mucous membranes Eyes General: appearance normal, both eyes and all related structures Neck Neck: Yes full ROM, Yes no lymphadenopathy and Yes supple Chest Breast/axilla palpation: normal palpation of the breasts Resp Auscultation: clear to auscultation bilaterally Cardio Other: S1-S2 present regular rate and rhythm GI Inspection: Yes normal to inspection Palpation (GI): Soft to palpation, nontender and no masses General: Yes no CVA tenderness Back/Spine/Pelvis Back: no CVA tenderness and No back tenderness Skin General skin exam: no rashes or lesions noted Neuro General: patient oriented x3 Extrem General: Yes full ROM, Yes no joint enlargement, Yes no clubbing, cyanosis or edema and Yes normal gait Psych Appearance: grossly normal and well kempt Mental Status: mental status grossly normal Speech and movement: Normal speech and movement present Affect: normal affect Coding Level of Care Code Est Pt Prev Care 18-39y(67205) Diagnoses Annual visit for general adult medical examination with abnormal findings Z00.01 Generalized anxiety disorder F41.1 Obesity (BMI 35.0-39.9 without comorbidity) E66.9 Restless leg syndrome G25.81 Encounter for counseling regarding advance directives Z71.89 Additional Codes RAMO-7 Assessment Billing - RAMO-7 Assessment Tool: RAMO-7 Assessment 35854 ([id number]) Assessment & Plan Assessment & Plan (1) Annual visit for general adult medical examination with abnormal findings: Code(s): Z00.01 - Encounter for general adult medical examination with abnormal findings Plan: Will check appropriate labs. Recommended dental visit every 6 months and regular eye exams, at least every 2 years. Take adequate calcium in diet and vitamin-D 3 at 2000 IU per cap once a day, in addition to weight-bearing exercises to help maintain good muscle tone and weight control. Instructed to do self-breast exam, and recommended to get yearly mammogram, starting at age 40. Reminded to get her COVID booster and flu shot. Goes to [facility] for her routine Pap and pelvic exam (2) Generalized anxiety disorder: Code(s): F41.1 - Generalized anxiety disorder Category: Medical Plan: Continue escitalopram (3) Obesity (BMI 35.0-39.9 without comorbidity): Code(s): E66.9 - Obesity, unspecified Category: Medical Plan: Continue with semaglutide addition to diet and exercise (4) Restless leg syndrome: Code(s): G25.81 - Restless legs syndrome Category: Medical Plan: Prescription sent for ropinirole 0.25 mg to take 1 tablet at bedtime (5) Encounter for counseling regarding advance directives: Code(s): Z71.89 - Other specified counseling Plan: Initiated the conversation about Advanced Directives. Advanced Directives help patients prepare for current and future decisions about their medical treatment and place of care. Discussed with patient that it is a process where a patients current condition and prognosis are reviewed, their wishes for information regarding their illness are elicited, and likely medical dilemmas are presented and options discussed. Healthcare proxy form completed The form can be amended as needed, reviewed yearly and make changes as needed Orders: Orders TSH reflex Free T4 06/15/24 E66.9 - Obesity, unspecified, E78.2 - Mixed hyperlipidemia, F41.1 - Generalized anxiety disorder, G25.81 - Restless legs syndrome, Z00.01 - Encounter for general adult medical examination with abnormal findings, Z71.89 - Other specified counseling Vitamin D 25-OH Total 10/01/24 E66.9 - Obesity, unspecified, E78.2 - Mixed hyperlipidemia, F41.1 - Generalized anxiety disorder, G25.81 - Restless legs syndrome, Z00.01 - Encounter for general adult medical examination with abnormal findings, Z71.89 - Other specified counseling Lipid Panel 06/15/24 E66.9 - Obesity, unspecified, E78.2 - Mixed hyperlipidemia, F41.1 - Generalized anxiety disorder, G25.81 - Restless legs syndrome, Z00.01 - Encounter for general adult medical examination with abnormal findings, Z71.89 - Other specified counseling Alanine Aminotransferase 06/15/24 E66.9 - Obesity, unspecified, E78.2 - Mixed hyperlipidemia, F41.1 - Generalized anxiety disorder, G25.81 - Restless legs syndrome, Z00.01 - Encounter for general adult medical examination with abnormal findings, Z71.89 - Other specified counseling Glucose Fasting 06/15/24 E66.9 - Obesity, unspecified, E78.2 - Mixed hyperlipidemia, F41.1 - Generalized anxiety disorder, G25.81 - Restless legs syndrome, Z00.01 - Encounter for general adult medical examination with abnormal findings, Z71.89 - Other specified counseling Aspartate Amino Transferase 06/15/24 E66.9 - Obesity, unspecified, E78.2 - Mixed hyperlipidemia, F41.1 - Generalized anxiety disorder, G25.81 - Restless legs syndrome, Z00.01 - Encounter for general adult medical examination with abnormal findings, Z71.89 - Other specified counseling Complete Blood Count Auto Diff 06/15/24 E66.9 - Obesity, unspecified, E78.2 - Mixed hyperlipidemia, F41.1 - Generalized anxiety disorder, G25.81 - Restless legs syndrome, Z00.01 - Encounter for general adult medical examination with abnormal findings, Z71.89 - Other specified counseling Medications: New ropinirole administer 1-3 hours before bedtime 0.25 mg PO BEDTIME 90 tabs 0RF
[2024-06-15 11:27] VITALS: BP 94/62; PULSE 70; O2SAT 97; BMI 34.2
== END 2024-06-15 13:31 | disposition home or self-care (01) ==
PROVIDERS: PCP Internal Medicine; Visit Provider Internal Medicine
DX: Z00.01 Encounter for general adult medical examination with abnormal findings (principal); F41.1 Generalized anxiety disorder; E66.811 Obesity, class 1; Z68.34 Body mass index [BMI] 34.0-34.9, adult; G25.81 Restless legs syndrome; Z71.89 Other specified counseling

== ENCOUNTER → 2024-06-15 10:46 | Outpatient (BNVA) | payer OTHER, SELFPAY | PROVIDERS: PCP Internal Medicine; Visit Provider Internal Medicine | DX: Z00.01 Encounter for general adult medical examination with abnormal findings (principal); F41.1 Generalized anxiety disorder; E66.9 Obesity, unspecified; Z68.34 Body mass index [BMI] 34.0-34.9, adult; G25.81 Restless legs syndrome; Z71.89 Other specified counseling | CPT/HCPCS: 96127 ==

== ENCOUNTER 2024-08-24 10:12 | Outpatient (REF) | payer OTHER, SELFPAY ==
[2024-08-24 13:02] LABS: MANUAL DIFF FLAG NO
[2024-08-24 13:10] LABS: Basophils Percent Auto 0.7 % (0-2); Eosinophils Absolute Auto 0.1 X10*3/uL (0.0-0.4); Eosinophils Percent Auto 2.2 % (0-4); Hematocrit 37.1 % (37.0-47.0); Hemoglobin 12.6 g/dl (12.0-16.0); Imm Gran Abs Auto 0.02 X10*3/uL (0.00-0.03); Imm Gran Pct Auto 0.4 % (0.0-0.4); Lymphocytes Absolute Auto 1.9 X10*3/uL (1.2-4.9); Lymphocytes Percent Auto 35.6 % (20-40); Mean Corpuscular Hemoglobin 30.6 pg (27.0-33.0); Mean Platelet Volume 10.9 fL (9.4-12.3); Monocytes Absolute Auto 0.5 X10*3/uL (0.1-1.2); Monocytes Percent Auto 8.4 % (2-11); Neutrophils Absolute Auto 2.8 x10*3/uL (2.0-8.3); Neutrophils Percent Auto 52.7 % (45-73); Platelet Count 221 X10*3/uL (160-400); Red Blood Count 4.12 X10*6/uL (4.20-5.50); Red Cell Distribution Width 11.7 % (11.0-16.0); White Blood Count 5.4 X10*3/uL (4.8-10.8)
[2024-08-24 13:21] LABS: Anion Gap 12 (12-20)
[2024-08-24 13:31] LABS: Alanine Aminotransferase 15 U/L (0-31); Albumin Level 4.2 g/dL (3.5-5.0); Alkaline Phosphatase 55 U/L (39-117); Aspartate Amino Transferase 18 U/L (5-31); Bilirubin Total 0.5 mg/dL (0.0-1.0); Blood Urea Nitrogen 10 mg/dL (9-16); Calcium 8.8 mg/dL (8.4-10.2); Carbon Dioxide 22 mmol/L (22-29); Chloride 111 mmol/L (96-108); Cholesterol 180 mg/dL (<200); Estimated Glomerular Filt Rate > 60; Glucose Fasting 82 mg/dL (60-99); HDL Cholesterol 55 mg/dL (>40); LDL Cholesterol Calculated 113 mg/dL (<100); Potassium 4.7 mmol/L (3.3-5.1); Sodium 140 mmol/L (135-145); Total Protein 6.8 g/dL (6.5-8.0); Triglycerides 63 mg/dL (<150)
[2024-08-24 13:41] LABS: Vitamin D 25-OH Total 104.6 ng/mL (>30)
[2024-08-24 14:26] LABS: TSH reflex Free T4 0.87 uIU/mL (0.32-4.0)
== END 2024-08-24 10:13 | disposition home or self-care (01) ==
LOC: HO.HMGCLDS 10:12
PROVIDERS: PCP Internal Medicine; Visit Provider Internal Medicine
DX: E66.9 Obesity, unspecified (principal); E78.2 Mixed hyperlipidemia; F41.1 Generalized anxiety disorder; Z71.89 Other specified counseling; Z00.01 Encounter for general adult medical examination with abnormal findings; G25.81 Restless legs syndrome; R25.2 Cramp and spasm
CPT/HCPCS: 36415; 80053; 80061; 82306; 84443; 85025

== ENCOUNTER 2024-12-06 10:45 | Outpatient (REF) | payer OTHER, SELFPAY ==
[2024-12-06 13:57] LABS: Alanine Aminotransferase 25 U/L (0-31); Anion Gap 10 (12-20); Aspartate Amino Transferase 44 U/L (5-31); Blood Urea Nitrogen 12 mg/dL (9-16); Calcium 9.4 mg/dL (8.4-10.2); Carbon Dioxide 21 mmol/L (22-29); Chloride 113 mmol/L (96-108); Cholesterol 186 mg/dL (<200); Estimated Glomerular Filt Rate > 60; Glucose Fasting 80 mg/dL (60-99); HDL Cholesterol 55 mg/dL (>40); LDL Cholesterol Calculated 115 mg/dL (<100); Potassium 3.9 mmol/L (3.3-5.1); Sodium 140 mmol/L (135-145); Triglycerides 82 mg/dL (<150)
[2024-12-06 14:13] LABS: TSH reflex Free T4 0.38 uIU/mL (0.32-4.0)
== END 2024-12-06 10:46 | disposition home or self-care (01) ==
LOC: HO.HMGCLDS 10:45
PROVIDERS: PCP Internal Medicine; Visit Provider Internal Medicine
DX: G47.33 Obstructive sleep apnea (adult) (pediatric) (principal); E66.9 Obesity, unspecified; E78.2 Mixed hyperlipidemia; F41.1 Generalized anxiety disorder
CPT/HCPCS: 36415; 80048; 80061; 84443; 84450; 84460

== ENCOUNTER 2024-12-13 09:14 | Outpatient (AMB) | payer OTHER, SELFPAY ==
[2024-12-13 09:22] VITALS: BP 92/62; PULSE 77; RESP 16; TEMP 36.7; O2SAT 98; BMI 32.9
--- NOTE | 2024-12-13 09:22 | A.OFFPC_ITS ---
Vital Signs 12/13/24 09:22 Height 5 ft 1 in Weight 174 lb BMI 32.9 BP 92/62 Blood Pressure Location Lt brachial Position Sitting Respiration 16 Pulse 77 Pulse Source Pulse Oximeter Temp 98.0 F Temp Source Oral Pulse Oximetry (%) 98 Oxygen Delivery Method Room Air Intake Visit Reasons: 6m follow up/weight Intake Note: Pt is here today for her 6mo. f/u/ weight in Allergies No Known Allergies Allergy (Verified 12/13/24 09:33) Medication List - Last Reconciled 12/13/24 by Holyl Castillo MD escitalopram oxalate 20 mg PO DAILY escitalopram oxalate 10 mg PO DAILY semaglutide (weight loss) 2.4 mg (0.75 mL) subcut QWEEK 30 days Tobacco use date assessed: 12/14/24 Dental Screening Dental Screen Date: 12/14/24 Did you have a dental visit in the last 12 months?: Yes Did you have a dental problem in the last 6 months where you did not have access to dental care?: No Was dental information given to patient?: Patient has dentist HPI 6m follow up/weight HPI Details 34-year-old lady with history of obesity , currently on semaglutide 2.4 mg injected once a week, here today for follow-up. Has been following recommended diet and has been exercising regularly. Patient states however that her weight loss has slowed down a little bit. Lost 13 lb in the last 5-months. Denies any side effects from taking the medication. She is currently on escitalopram 20 mg daily which has been helping control her anxiety symptoms. [facility] Medical History (Updated 12/13/24 @ 09:49 by Holly Castillo MD) History of vitamin D deficiency Restless leg syndrome Obesity (BMI 35.0-39.9 without comorbidity) Mild obstructive sleep apnea Sleeping difficulty Snoring Excessive daytime sleepiness Mixed dyslipidemia IBS (irritable bowel syndrome) Generalized anxiety disorder Surgical History [place] teeth extracted Family History Paternal Grandmother Substance use disorder Father Crohn's disease Mother Uterine cancer Social History Housing: House Alcohol intake: current Alcohol intake frequency: holidays/special occasions only Patient Tobacco Use Status: Never used Tobacco e-Cigarette/Vaping Use: Never Used service: No Current occupational status: employed Cognitive needs: No Hearing needs: No Vision needs: No Questionnaire PHQ-9 Over the last 2 weeks, how often have you been bothered by any of the following problems? 1. Little interest or pleasure in doing things: not at all 2. Feeling down, depressed, or hopeless: not at all 3. Trouble falling or staying asleep, or sleeping too much: several days 4. Feeling tired or having little energy: several days 5. Poor appetite or overeating: not at all 6. Feeling bad about yourself - or that you are a failure or have let yourself or your family down: not at all 7. Trouble concentrating on things, such as reading the newspaper or watching television: not at all 8. Moving or speaking so slowly that other people could have noticed. Or the opposite - being so fidgety or restless that you have been moving around a lot more than usual: not at all 9. Thoughts that you would be better off or of hurting yourself in some way: not at all Total score: 2 Depression Screening Interpretation: Negative Depression Screening Done: Yes 34736 - PHQ-9 Billing: Yes Source: Developed by Drs. Dorian Burns, Cuca Costello, Kye Loyola and colleagues, with an educational ruth from [employer]. Thrive Questionnaire Date Thrive assessed: 12/06/24 I am a: Patient What is your living situation today?: I have a steady place to live Within the past 12 months, did the food you bought not last and you didn't have the money to get more?: Never true Within the past 12 months, did you worry whether your food would run out before you got money to buy more?: Never true Do you have trouble paying for medicines?: No Do you have trouble getting transportation to medical appointments?: No Do you have trouble paying your heating and electricity bill?: No Do you have trouble taking care of your child, family member or friend?: No Do you have trouble with day-to-day activities such as bathing, preparing meals, shopping, managing finances, etc.?: No Are you currently unemployed and looking for a job?: No Are you interested in more education?: No Please select the resources that you would like help with: None Currently or been in a relationship where the following occur: No concerns reported THRIVE Score: 0 AUDIT C Alcohol Use Questionnaire (AUDIT-C) 1. How often do you have a drink containing alcohol?: Monthly or less 2. How many drinks containing alcohol do you have on a typical day when you are drinking?: 1 or 2 3. How often do you have six or more drinks on one occasion?: Never Total Score: 1 Score Reviewed/Action Taken: Yes RAMO-7 AMB Questionnaire RAMO-7 Date RAMO - 7 assessed: 12/14/24 Feeling nervous, anxious, or on edge: 1 = Several days Not being able to stop or control worryin = Several days Worrying too much about different things: 1 = Several days Trouble relaxin = Several days Being so restless that it is hard to sit still: 0 = Not at all Becoming easily annoyed or irritable: 1 = Several days Feeling afraid as if something awful might happen: 1 = Several days Total RAMO-7 score (0-4 normal; 5-9 mild; 10-14 moderate; 15-21 severe): 6 Source: Developed by Drs. Dorian Burns, Cuca Costello, Kye Loyola and colleagues, with an educational ruth from [employer]. RAMO-7 Assessment Billing RAMO-7 Assessment Tool: RAMO-7 Assessment 34350 Review of Systems Const Reports no additional complaints, Denies fatigue, Denies headache(s) and Denies weakness Eyes Denies change in vision and Denies itchy eyes ENT Denies dizziness and Denies headache(s) Card Reports no additional complaints and Denies palpitations Resp Denies cough and Denies wheezing GI Reports no additional complaints Denies hematuria, Denies urinary frequency, Denies dysuria and Denies urinary urgency Musc Reports no additional complaints Skin/Breast Denies breast pain, Denies breast mass, Denies lesions and Denies rash Neuro Denies dizziness, Denies headache(s) and Denies weakness Psych Reports no additional complaints Endo Denies fatigue, Denies polydipsia, Denies polyuria and Denies palpitations Mariano/Lymph Denies easy bruising Aller/Immun Denies itchy eyes, Denies seasonal rhinorrhea and Denies wheezing Physical exam (Primary Care) Vital Signs: Last Vital Signs Temp 98.0 F 12/13/24 09:22 Pulse 77 12/13/24 09:22 Resp 16 12/13/24 09:22 BP 92/62 12/13/24 09:22 Pulse Ox 98 12/13/24 09:22 Oxygen Delivery Method Room Air 12/13/24 09:22 BMI result Body Mass Index 32.9 Tobacco/Smoking Status: Tobacco use Status Tobacco use date assessed 12/14/24 12/14/24 08:11 Patient Tobacco Use Status Never used Tobacco 12/13/24 09:23 e-Cigarette/Vaping Use Never Used 12/13/24 09:23 PHQ-9: PHQ-9 Score PHQ-9: Total score 2 12/14/24 08:11 Depression Screening Interpretation: Negative Thrive Assessment: Date of Thrive Assessment Date Thrive assessed 12/06/24 12/13/24 09:23 Currently or been in a relationship where the following occur: No concerns reported Const General: no acute distress and alert Nutritional Appearance: obese Orientation/consciousness: patient oriented x3 HENMT Head: Yes normocephalic General nose exam: Normal external nose present and Normal nares present Mouth: Normal oral and palatal mucosa present, oropharynx normal and moist mucous membranes Eyes General: appearance normal, both eyes and all related structures Neck Neck: Yes full ROM, Yes no lymphadenopathy and Yes supple Chest Breast/axilla palpation: normal palpation of the breasts Resp Auscultation: clear to auscultation bilaterally Cardio Other: S1-S2 present regular rate and rhythm GI Inspection: Yes normal to inspection Palpation (GI): Soft to palpation, nontender and no masses General: Yes no CVA tenderness Back/Spine/Pelvis Back: no CVA tenderness and No back tenderness Skin General skin exam: no rashes or lesions noted Neuro General: patient oriented x3 Extrem General: Yes full ROM, Yes no joint enlargement, Yes no clubbing, cyanosis or edema and Yes normal gait Psych Appearance: grossly normal and well kempt Mental Status: mental status grossly normal Speech and movement: Normal speech and movement present Affect: normal affect Results Reviewed Results Reviewed: Name: Beverley Martínez Age/Sex: 33/F : 1990 Unit#: [id number] Attend Dr: Holly Castillo MD Re12/06/24 Status: DEP REF Location: [facility] Disch: SPEC : [id number] NOAH: 12/06/24 STATUS: COMP REQ : [id number] RECD: 12/06/24-[address]: Holly Castillo MD COMP: 12/06/24-1412 ENTERED: 12/06/[address]: ORDERED: Met Prof Fast, AST, ALT, Lipid Panel, TSH Rflx Test Result Flag Reference Sodium 140 135-145 mmol/L Potassium 3.9 3.3-5.1 mmol/L CL 113 H 96-108 mmol/L CO2 21 L 22-29 mmol/L Gap 10 L 12-20 BUN 12 9-16 mg/dL Creat 0.78 0.5-1.4 mg/dL eGFR > 60 Chronic Kidney Disease: Estimated GFR < 60 mL/min/1.73m2 Severe Kidney Disease: Estimated GFR < 15 mL/min/1.73m2 FBS 80 60-99 mg/dL CA 9.4 # 8.4-10.2 mg/dL AST (GOT) 44 H 5-31 U/L ALT (GPT) 25 0-31 U/L Triglyceride 82 <150 mg/dL Desirable Triglyceride: less than 150 mg/dL Borderline High Triglyceride 150-199 mg/dL High Triglyceride: 200-499 mg/dL Very High Triglyceride: greater than or equal to 5OO mg/dL Cholesterol 186 <200 mg/dL Desirable Cholesterol: less than 200 mg/dL Borderline High Cholesterol: 200-239 mg/dL High Cholesterol: greater than 239 mg/dL LDL Calculated 115 H <100 mg/dL Desirable LDL: less than 100 mg/dL Near Optimal/Above Optimal LDL: 110-129 mg/dL Borderline High LDL: 130-159 mg/dL High LDL: 160-189 mg/dL Very High LDL: greater than or equal to 190 mg/dL HDL 55 >40 mg/dL Desirable HDL: greater than 40 mg/dL Note: This HDL assay may give artificially low results in patients with liver disease. TSH 0.38 0.32-4.0 uIU/mL Coding Level of Care Code Est Pt Level 4 (24018) Complex EM visit Add On G2211 Diagnoses Obesity (BMI 35.0-39.9 without comorbidity) E66.9 Generalized anxiety disorder F41.1 Additional Codes RAMO-7 Assessment Billing - RAMO-7 Assessment Tool: RAMO-7 Assessment 07594 ([id number]) PHQ-9 - 86339 - PHQ-9 Billing: Yes ([id number]) Assessment & Plan Assessment & Plan (1) Obesity (BMI 35.0-39.9 without comorbidity): Code(s): E66.9 - Obesity, unspecified Category: Medical Plan: Will continue on Wegovy 2.4 mg injected subcutaneously once a week, reinforced importance of follow combining this with adhering to healthy eating habits and getting regular exercise. Will see her back for follow-up in June 2025 after fasting labs done (2) Generalized anxiety disorder: Code(s): F41.1 - Generalized anxiety disorder Category: Medical Plan: Anxiety controlled on escitalopram 30 mg daily. Orders: Orders Lipid Panel 06/15/25 E66.9 - Obesity, unspecified, E78.2 - Mixed hyperlipidemia, F41.1 - Generalized anxiety disorder, G47.33 - Obstructive sleep apnea (adult) (pediatric), Z13.1 - Encounter for screening for diabetes mellitus, Z86.39 - Personal history of other endocrine, nutritional and metabolic disease Comprehensive [place]. Panel Fast 06/15/25 E66.9 - Obesity, unspecified, E78.2 - Mixed hyperlipidemia, F41.1 - Generalized anxiety disorder, G47.33 - Obstructive sleep apnea (adult) (pediatric), Z13.1 - Encounter for screening for diabetes mellitus, Z86.39 - Personal history of other endocrine, nutritional and metabolic disease TSH reflex Free T4 06/15/25 E66.9 - Obesity, unspecified, E78.2 - Mixed hyperlipidemia, F41.1 - Generalized anxiety disorder, G47.33 - Obstructive sleep apnea (adult) (pediatric), Z13.1 - Encounter for screening for diabetes mellitus, Z86.39 - Personal history of other endocrine, nutritional and meta bolic disease Vitamin D 25-OH Total 06/15/25 E66.9 - Obesity, unspecified, E78.2 - Mixed hyperlipidemia, F41.1 - Generalized anxiety disorder, G47.33 - Obstructive sleep apnea (adult) (pediatric), Z13.1 - Encounter for screening for diabetes mellitus, Z86.39 - Personal history of other endocrine, nutritional and metabolic disease Medications: Refilled semaglutide (weight loss) administer weeks 9 through 12 of therapy 2.4 mg (0.75 mL) subcut QWEEK 3.75 mL 5RF 30 days E66.9 - Obesity, unspecified
== END 2024-12-13 10:11 | disposition home or self-care (01) ==
LOC: HO.HMCC 09:15
PROVIDERS: PCP Internal Medicine; Visit Provider Internal Medicine
DX: F41.1 Generalized anxiety disorder (principal); E66.9 Obesity, unspecified; Z68.32 Body mass index [BMI] 32.0-32.9, adult

== ENCOUNTER → 2024-12-13 09:14 | Outpatient (BNVA) | payer OTHER, SELFPAY | PROVIDERS: PCP Internal Medicine; Visit Provider Internal Medicine | DX: E66.9 Obesity, unspecified (principal); Z68.32 Body mass index [BMI] 32.0-32.9, adult; F41.1 Generalized anxiety disorder; Z79.899 Other long term (current) drug therapy | CPT/HCPCS: 96127 ==

== ENCOUNTER 2025-06-21 06:49 | Outpatient (REF) | payer OTHER, SELFPAY ==
--- OUTSIDE RECORDS SUMMARY | 2025-06-21 06:51 | XMS_ITS | Encounter Summary ---
Author Organization [facility] Address [address] [place] [id number] Phone Care Team Providers Care Software Security Architect Name Role Phone Jeannie Greer MD Primary Care Provider [phone] Encounter Details Date Type Department Care Team (Late st Contact Info) Description 05/01/2017 Conversion Encounter [facility] [place] [address] [place] [address] Social History Tobacco Use Types Packs/Day Years Used Date Smoking Tobacco: Never Assessed Comments Unknown Sex and Gender Information Value Date Recorded Sex Assigned at Not on file Legal Sex Female 4:28 PM EDT Gender Identity Not on file Sexual Orientation Not on file documented as of this encounter Plan of Treatment Not on file documented as of this encounter Visit Diagnoses Not on filedocumented in this encounter Care Teams Software Security Architect Relationship Specialty Start Date End Date Jeannie Greer MD [address] [place] [address] PCP - General 04/25/17 01/05/23 documented as of this encounter
--- OUTSIDE RECORDS SUMMARY | 2025-06-21 06:51 | XMS_ITS | Clinical Summary ---
Author Organization [facility] Address [address] [place] [address] Phone Care Team Providers Care Small Animal Caretaker Name Role Phone Unavailable Primary Care Provider Unavailabl e Immunizations Immunization Administration Dates Next Due DTP 08/14/1999, 9,03/14/1999,03/14,12/13/1990 HPV, Quadrivalent 10/28/2008,06/24/2008,02/25/20 08 Hep B, ped/adol 01/22/2001,10/29/2000,09/25/2000 IPV 05/15/1999, 9,03/14/1994,12/13 MMR 01/21/2001,07/15/1990 Meningococcal Conj (Menactra) MCV4P 03/23/2007 Td (adult) (MBL), 2 Lf tetan us toxoid, PF, adsorbed 01/21/2001 Tdap 09/27/2009 Family History Relation Name Status Comments Other No family histo ry of Migraines, No family history of Deafness, No family history of Obesity, No family history of Asthma, No family history of Autism, No family history of Elevated cholesterol, No family history of ADD/ADHD, No family history of Diabetes mellitus Social History Tobacco Use Types Packs/Day Years Used Date Smoking Tobacco: Never Assessed Comments Unknown Sex and Gender Information Value Date Recorded Sex Assigned at Not on file Legal Sex Female 4:28 PM EDT Gender Identity Not on file Sexual Orientation Not on file Plan of Treatment Health Maintenance Due Date Last Done Comments Varicella Vaccines (1 of 2 - 13+ 2-dose series) 2001 DTaP,Tdap,and Td Vaccines (8 - Td or Tdap) 09/27/2019 09/27/2009, 01/21/2001, 08/14/1999, Additional history exists Influenza Vaccines (#1) 2025 COVID-19 Vaccine (2024- season) 2025 IPV Vaccines Completed 05/15/1999, 02/15, 03/14/1994, Additional history exists MMR Vaccines Completed 01/21/2001, 07/15/1990 Hepatitis B Vaccines Completed 01/22/2001, 10/29/2000, 09/25/2000 Meningococcal Vaccine Completed 03/23/2007 HPV Vaccines Completed 10/28/2008, 06/15, 02/25/2008 HIB Vaccines Aged Out No longer eligi ble based on patient's age to complete this topic Hepatitis A Vaccines Aged Out No long er eligible based on patient's age to complete this topic Men B Vaccine Aged Out No longer elig ible based on patient's age to complete this topic Pneumococcal Vaccine Aged Out No long er eligible based on patient's age to complete this topic
--- OUTSIDE RECORDS SUMMARY | 2025-06-21 06:51 | XMS_ITS | Clinical Summary ---
Author Organization [facility] Address [address] [address] Phone Care Team Providers Care Lending Activities Supervisor Name Role Phone Holly Castillo MD Primary Care Provider Allergies No known active allergies Medications escitalopram oxalate (LEXAPRO) 10 MG tablet Take 10 mg by mouth daily. 2 Active escitalopram oxalate (LEXAPRO) 20 MG tablet Take 20 mg by mouth daily. 2 Active phentermine (ADIPEX-P) 37.5 MG capsule TAKE 1 CAPSULE ORALLY DAILY MUST ADMINISTER 30 MINUTES BEFORE OR 1-2 HOURS AFTER BREAKFAST 2 Active Active Problems No known active problems Immunizations Immunization Administration Dates Next Due DTP 08/14/1999, 9,03/14/1999,03/14,12/13/1990 HPV,quadrivalent 10/28/2008,06/24/2008, 8 Hepatitis B 01/22/2001,10/29/2000,09/25/2000 IPV 05/15/1999, 9,03/14/1994,12/13 Influenza Quadrivalent Prese rvative Free IM 07/18/2022 MMR 01/21/2001,07/15/1990 Meningococcal MCV4P 03/23/2007 Td (adult),2 Lf Tetanus Toxo id, PF, Adsorbed 01/21/2001 Tdap 09/27/2009 Social History Tobacco Use Types Packs/Day Years Used Date Smoking Tobacco: Never Smokeless Tobacco: Never Tobacco Cessation:Counseling Given: Not Answered Education Answer Date Recorded Are you interested in more education? Not on rocael e 01/10/2023 Are you concerned about learning? Not on file 01/10/2023 No 01/10/2023 No 01/10/2023 Digital Access Answer Date Recorded No 02/08/2023 No 02/08/2023 Reliable internet access at home? Not on file 02/08/2023 Device with a working camera? Not on file Comments Unknown Sex and Gender Information Value Date Recorded Sex Assigned at Not on file Legal Sex Female 9:05 AM EST Gender Identity Not on file Sexual Orientation Not on file Last Filed Vital Signs Vital Sign Reading Time Taken Comments Blood Pressure 113/80 08/12/2022 10:41 AM EST Pulse 80 08/12/2022 10:41 AM EST Temperature 36.9 C (98.4 F) 08/12/2022 10:41 AM EST Respiratory Rate 20 08/12/2022 10:41 AM EST Oxygen Saturation 99% 08/12/2022 10:41 AM EST Inhaled Oxygen Concentration - - Weight 98 kg (216 lb) 08/12/2022 10:41 AM EST Height 154.9 cm (5' 1 ) 08/12/2022 10:41 AM EST Body Mass Index 40.81 08/12/2022 10:41 AM EST Plan of Treatment Health Maintenance Due Date Last Done Comments DEPRESSION SCREENING 2000 HEPATITIS C SCREENING 2006 HIV ONE-TIME SCREENING (18-6 5 YEARS) 2006 PAP SMEAR 2009 Adult Td,Tdap Booster 09/15/2022 09/15/2012 , 09/27/2009, 01/21/2001 SCREENING FOR DIABETES 12/11/2023 INFLUENZA VACCINE (#1) 2025 , 05/31/2021, 07/13/2020 COVID-19 VACCINE (2024-2 6 season) 2025 08/01/2021, 10/26/2020, 09/18/2020 MENINGOCOCCAL VACCINES (ACWY) Completed 03/23/2007 SMOKING STATUS SCREENING (On ce After 26 Yrs) Completed 08/12/2022 HEPATITIS A VACCINES Aged Out No long er eligible based on patient's age to complete this topic HIB VACCINES Aged Out No longer eligi ble based on patient's age to complete this topic MENINGOCOCCAL VACCINES (B) Aged Out N o longer eligible based on patient's age to complete this topic PNEUMOCOCCAL VACCINES (0-49 years) Aged Out No longer eligible b ased on patient's age to complete this topic Medical Devices Not on file Insurance [facility] [id number] [id number] [id number] [place] [address] [facility] Care Teams Lending Activities Supervisor Relationship Specialty Start Date End Date Holly Castillo MD [facility] [place] [address] PCP - General Internal Medicine 09/27/20 Additional Source Comments The information contained in this document represents components of the legal health record. It is not the complete legal health record.[facility]
[2025-06-21 11:16] LABS: Alanine Aminotransferase 19 U/L (0-31); Albumin Level 4.5 g/dL (3.5-5.0); Alkaline Phosphatase 64 U/L (39-117); Anion Gap 10 (12-20); Aspartate Amino Transferase 21 U/L (5-31); Blood Urea Nitrogen 21 mg/dL (9-16); Calcium 9.0 mg/dL (8.4-10.2); Carbon Dioxide 22 mmol/L (22-29); Chloride 111 mmol/L (96-108); Cholesterol 176 mg/dL (<200); Estimated Glomerular Filt Rate > 60; HDL Cholesterol 51 mg/dL (>40); Potassium 3.9 mmol/L (3.3-5.1); Sodium 139 mmol/L (135-145); Total Protein 6.9 g/dL (6.5-8.0); Triglycerides 117 mg/dL (<150)
== END 2025-06-21 06:50 | disposition home or self-care (01) ==
LOC: HO.HMGCLDS 06:49
PROVIDERS: PCP Internal Medicine; Visit Provider Internal Medicine
DX: Z00.01 Encounter for general adult medical examination with abnormal findings (principal); Z13.21 Encounter for screening for nutritional disorder; Z13.1 Encounter for screening for diabetes mellitus; E66.9 Obesity, unspecified; E78.2 Mixed hyperlipidemia; F41.1 Generalized anxiety disorder; Z71.89 Other specified counseling; G25.81 Restless legs syndrome; G47.33 Obstructive sleep apnea (adult) (pediatric); Z86.39 Personal history of other endocrine, nutritional and metabolic disease
CPT/HCPCS: 36415; 80053; 80061; 82306; 82947; 84443

== ENCOUNTER 2025-06-23 09:48 | Outpatient (AMB) | payer OTHER, SELFPAY ==
--- NOTE | 2025-06-23 10:03 | A.OFFPC_ITS ---
Vital Signs 06/23/25 10:14 Height 5 ft 1 in Weight 177 lb BMI 33.4 BP 102/72 Blood Pressure Location Lt brachial Position Sitting Respiration 15 Pulse 74 Pulse Source Pulse Oximeter Temp 98.1 F Temp Source Oral Pulse Oximetry (%) 100 Oxygen Delivery Method Room Air Intake Visit Reasons: PE Intake Note: Pt is here today for her PE: last papsmear 08/20/21 Molding Engineer Required: No Is last menstrual period known: Yes Last menstrual period: 05/24/25 Allergies No Known Allergies Allergy (Verified 06/23/25 10:30) Medication List - Last Reconciled 06/23/25 by Holly Castillo MD escitalopram oxalate 20 mg PO DAILY escitalopram oxalate 10 mg PO DAILY semaglutide (weight loss) 2.4 mg (0.75 mL) subcut QWEEK 30 days Tobacco use date assessed: 06/23/25 Dental Screening Dental Screen Date: 06/23/25 Did you have a dental visit in the last 12 months?: Yes Did you have a dental problem in the last 6 months where you did not have access to dental care?: No Was dental information given to patient?: Patient has dentist HPI PE HPI Details 34-year-old lady with history of mild ob structive sleep apnea, mixed dyslipidemia, generalized anxiety disorder and obesity, currently on semaglutide 2.4 mg injected once a week, here today for her physical exam. She goes to [facility] for her routine Pap and pelvic exam, with last Pap smear done 08/20/2022 showing negative findings. Anxiety disorder stable and controlled on escitalopram 30 mg daily . [facility] Medical History (Updated 06/23/25 @ 10:33 by Holly Castillo MD) Obesity (BMI 30.0-34.9) History of vitamin D deficiency Restless leg syndrome Mild obstructive sleep apnea Sleeping difficulty Snoring Excessive daytime sleepiness Mixed dyslipidemia IBS (irritable bowel syndrome) Generalized anxiety disorder Surgical History [place] teeth extracted Family History Paternal Grandmother Substance use disorder Father Crohn's disease Mother Uterine cancer Social History Housing: House Alcohol intake: current Alcohol intake frequency: holidays/special occasions only Patient Tobacco Use Status: Never used Tobacco e-Cigarette/Vaping Use: Never Used service: No Current occupational status: employed Cognitive needs: No Hearing needs: No Vision needs: No Female Reproductive History Menstrual Date of last menstrual period: 05/24/25 Date of last pap smear: 08/20/22 Questionnaire PHQ-9 Over the last 2 weeks, how often have you been bothered by any of the following problems? 1. Little interest or pleasure in doing things: not at all 2. Feeling down, depressed, or hopeless: not at all 3. Trouble falling or staying asleep, or sleeping too much: several days 4. Feeling tired or having little energy: several days 5. Poor appetite or overeating: not at all 6. Feeling bad about yourself - or that you are a failure or have let yourself or your family down: not at all 7. Trouble concentrating on things, such as reading the newspaper or watching television: not at all 8. Moving or speaking so slowly that other people could have noticed. Or the opposite - being so fidgety or restless that you have been moving around a lot more than usual: not at all 9. Thoughts that you would be better off or of hurting yourself in some way: not at all Total score: 2 Depression Screening Interpretation: Negative Depression Screening Done: Yes Source: Developed by Drs. Dorian Burns, Cuca Costello, Kye Loyola and colleagues, with an educational ruth from [employer]. Thrive Questionnaire Date Thrive assessed: 12/06/24 I am a: Patient What is your living situation today?: I have a steady place to live Within the past 12 months, did the food you bought not last and you didn't have the money to get more?: Never true Within the past 12 months, did you worry whether your food would run out before you got money to buy more?: Never true Do you have trouble paying for medicines?: No Do you have trouble getting transportation to medical appointments?: No Do you have trouble paying your heating and electricity bill?: No Do you have trouble taking care of your child, family member or friend?: No Do you have trouble with day-to-day activities such as bathing, preparing meals, shopping, managing finances, etc.?: No Are you currently unemployed and looking for a job?: No Are you interested in more education?: No Please select the resources that you would like help with: None Currently or been in a relationship where the following occur: No concerns reported THRIVE Score: 0 AUDIT C Alcohol Use Questionnaire (AUDIT-C) 1. How often do you have a drink containing alcohol?: Monthly or less 2. How many drinks containing alcohol do you have on a typical day when you are drinking?: 1 or 2 3. How often do you have six or more drinks on one occasion?: Never Total Score: 1 RAMO-7 AMB Questionnaire RAMO-7 Date RAMO - 7 assessed: 12/14/24 Feeling nervous, anxious, or on edge: 1 = Several days Not being able to stop or control worryin = Several days Worrying too much about different things: 1 = Several days Trouble relaxin = Not at all Being so restless that it is hard to sit still: 0 = Not at all Becoming easily annoyed or irritable: 1 = Several days Feeling afraid as if something awful might happen: 1 = Several days Total RAMO-7 score (0-4 normal; 5-9 mild; 10-14 moderate; 15-21 severe): 5 Source: Developed by Drs. Dorian Burns, Cuca Costello, Kye Loyola and colleagues, with an educational ruth from [employer]. RAMO-7 Assessment Billing RAMO-7 Assessment Tool: RAMO-7 Assessment 76101 Review of Systems Const Reports no additional complaints Eyes Denies change in vision ENT Denies dizziness Card Reports no additional complaints and Denies palpitations Resp Denies cough and Denies wheezing GI Reports no additional complaints Denies hematuria, Denies urinary frequency, Denies dysuria and Denies urinary urgency Musc Reports no additional complaints Skin/Breast Denies breast pain, Denies breast mass, Denies lesions and Denies rash Neuro Denies dizziness Psych Reports no additional complaints Endo Denies polydipsia, Denies polyuria and Denies palpitations Mariano/Lymph Denies easy bruising Aller/Immun Denies seasonal rhinorrhea and Denies wheezing Physical exam (Primary Care) Vital Signs: Last Vital Signs Temp 98.1 F 06/23/25 10:14 Pulse 74 06/23/25 10:14 Resp 15 06/23/25 10:14 BP 102/72 06/23/25 10:14 Pulse Ox 100 06/23/25 10:14 Oxygen Delivery Method Room Air 06/23/25 10:14 BMI result Body Mass Index 33.4 Tobacco/Smoking Status: Tobacco use Status Tobacco use date assessed 06/23/25 06/23/25 10:05 Patient Tobacco Use Status Never used Tobacco 06/23/25 10:05 e-Cigarette/Vaping Use Never Used 06/23/25 10:05 PHQ-9: PHQ-9 Score PHQ-9: Total score 2 06/23/25 10:33 Depression Screening Interpretation: Negative Thrive Assessment: Date of Thrive Assessment Date Thrive assessed 12/06/24 06/23/25 10:05 Currently or been in a relationship where the following occur: No concerns reported Advance Care Planning discussion: On file, no changes Date of discussion: 06/15/24 Who was present: patient Forms completed: Health Care Proxy Time spent: 1-15 minutes, on File Actual minutes spent: 1 Const General: no acute distress and alert Nutritional Appearance: obese Orientation/consciousness: patient oriented x3 HENMT Head: Yes normocephalic General nose exam: Normal external nose present and Normal nares present Mouth: Normal oral and palatal mucosa present, oropharynx normal and moist mucous membranes Eyes General: appearance normal, both eyes and all related structures Neck Neck: Yes full ROM, Yes no lymphadenopathy and Yes supple Chest Breast/axilla palpation: normal palpation of the breasts Resp Auscultation: clear to auscultation bilaterally Cardio Other: S1-S2 present regular rate and rhythm GI Inspection: Yes normal to inspection Palpation (GI): Soft to palpation, nontender and no masses General: Yes no CVA tenderness Back/Spine/Pelvis Back: no CVA tenderness and No back tenderness Skin General skin exam: no rashes or lesions noted Neuro General: patient oriented x3 Extrem General: Yes full ROM, Yes no joint enlargement, Yes no clubbing, cyanosis or edema and Yes normal gait Psych Appearance: grossly normal and well kempt Mental Status: mental status grossly normal Speech and movement: Normal speech and movement present Affect: normal affect Results Reviewed Results Reviewed: Name: Beverley Martínez Age/Sex: 34/F : 1990 Unit#: [id number] Attend Dr: Holly Castillo MD Re06/21/25 Status: DEP REF Location: [facility] Disch: SPEC : [id number] NOAH: 06/21/25 STATUS: COMP REQ : [id number] RECD: 06/21/[address]: Holly Castillo MD COMP: 06/21/25 ENTERED: 06/21/25 [facility] DR: ORDERED: CMP Fast, Lipid Panel, Vitamin D 25-OH, TSH Rflx Test Result Flag Reference Sodium 139 135-145 mmol/L Potassium 3.9 3.3-5.1 mmol/L CL 111 H 96-108 mmol/L CO2 22 22-29 mmol/L Gap 10 L 12-20 BUN 21 H 9-16 mg/dL Creat 0.81 0.5-1.4 mg/dL eGFR > 60 Chronic Kidney Disease: Estimated GFR < 60 mL/min/ 1.73m2 Severe Kidney Disease: Estimated GFR < 15 mL/min/1.73m2 FBS 84 60-99 mg/dL CA 9.0 8.4-10.2 mg/dL Total Bili 0.4 0.0-1.0 mg/dL AST (GOT) 21 5-31 U/L ALT (GPT) 19 0-31 U/L Protein, Total 6.9 6.5-8.0 g/dL Alb 4.5 3.5-5.0 g/dL Triglyceride 117 <150 mg/dL Desirable Triglyceride: less than 150 mg/dL Borderline High Triglyceride 150-199 mg/dL High Triglyceride: 200-499 mg/dL Very High Triglyceride: greater than or equal to 5OO mg/dL Cholesterol 176 <200 mg/dL Desirable Cholesterol: less than 200 mg/dL Borderline High Cholesterol: 200-239 mg/dL High Cholesterol: greater than 239 mg/dL LDL Calculated 102 H <100 mg/dL Desirable LDL: less than 100 mg/dL Near Optimal/Above Optimal LDL: 110-129 mg/dL Borderline High LDL: 130-159 mg/dL High LDL: 160-189 mg/dL Very High LDL: greater than or equal to 190 mg/dL HDL 51 >40 mg/dL Desirable HDL: greater than 40 mg/dL Note: This HDL assay may give artificially low results in patients with liver disease. Alk Phos 64 39-117 U/L Vitamin D 25-OH 73.8 >30 ng/mL Health Based Reference Values* < 20 ng/mL Deficient 20-30 ng/mL Insufficient > 30 ng/mL Sufficient *Rivka THOMPSON. N Engl J Med. 2007;357:266-280 There is no well-established upper level of normal vitamin D levels. Some laboratories use 50 ng/mL as an upper limit of normal. However, toxicity is patient-dependent and may occur at any level. Careful correlation with the patient's presentation is necessary and, if there is concern for vitamin D toxicity, treatment should be considered irrespective of the serum level. Care must be taken in interpreting Vitamin D results from different laboratories and methodologies. Published data demonstrated that results from patients undergoing hemodialysis may show a negative bias when tested with various automated 25-OH vitamin D assays when compared to LC-MS/MS. When testing samples from patients whose predominant form of Vitamin D is Vitamin D2, such as patients receiving Vitamin D2 supplementation, results that are subtherapeutic should be confirmed with another method such as LC-MS/MS. TSH 1.49 0.32-4.0 uIU/mL Coding Level of Care Code Est Pt Level 4 (70421) Complex EM visit Add On G2211 Diagnoses Annual visit for general adult medical examination with abnormal findings Z00.01 Obesity (BMI 30.0-34.9) E66.811 Generalized anxiety disorder F41.1 Mixed dyslipidemia E78.2 History of vitamin D deficiency Z86.39 Mild obstructive sleep apnea G47.33 Additional Codes RAMO-7 Assessment Billing - RAMO-7 Assessment Tool: RAMO-7 Assessment 90862 ([id number]) Vital Signs *Quality* - Advance Care Planning discussion: On file, no changes ([id number]) Vital Signs *Quality* - Time spent: 1-15 minutes, on File ([id number]) Assessment & Plan Assessment & Plan (1) Annual visit for general adult medical examination with abnormal findings: Code(s): Z00.01 - Encounter for general adult medical examination with abnormal findings (2) Obesity (BMI 30.0-34.9): Code(s): E66.811 - Obesity, class 1 Category: Medical (3) Generalized anxiety disorder: Code(s): F41.1 - Generalized anxiety disorder Category: Medical (4) Mixed dyslipidemia: Code(s): E78.2 - Mixed hyperlipidemia Category: Medical (5) History of vitamin D deficiency: Code(s): Z86.39 - Personal history of other endocrine, nutritional and metabolic disease Category: Medical (6) Mild obstructive sleep apnea: Comment: Seen on home sleep study done November 2022 Code(s): G47.33 - Obstructive sleep apnea (adult) (pediatric) Category: Medical Plan During the consultation, we discussed the management of the patient's chronic obesity , will switch from Wegovy to Mounjaro for weight management due to insurance coverage and efficacy. We reviewed her lab results, emphasizing the importance of maintaining a balanced diet to manage her dyslipidemia. The patient was advised to continue her current medication for anxiety and to follow up with routine screenings and preventative care measures. Up-to-date with her vaccines, reminded to get her yearly flu shot, up-to-date with her tetanus diphtheria booster Stressed importance of recommended diet, and getting regular exercise. Patient was informed and verbally consented to the use of an ambient scribe for clinic note documentation during this visit. Medications: New Mounjaro (tirzepatide) for 4 weeks 2.5 mg (0.5 mL) subcut QWEEK 2 mL 1RF NS E66.811 - Obesity, class 1, G47.33 - Obstructive sleep apnea (adult) (pediatric) Discontinued semaglutide (weight loss) administer weeks 9 through 12 of therapy Discontinued Reason: Doctor's Order 2.4 mg (0.75 mL) subcut QWEEK 30 days 3.75 mL 5RF E66.9 - Obesity, unspecified
[2025-06-23 10:14] VITALS: BP 102/72; PULSE 74; RESP 15; TEMP 36.7; O2SAT 100; BMI 33.4
== END 2025-06-23 11:00 | disposition home or self-care (01) ==
LOC: HO.HMCC 09:49
PROVIDERS: PCP Internal Medicine; Visit Provider Internal Medicine
DX: Z00.00 Encounter for general adult medical examination without abnormal findings (principal); E66.811 Obesity, class 1; Z68.33 Body mass index [BMI] 33.0-33.9, adult; F41.1 Generalized anxiety disorder; E78.2 Mixed hyperlipidemia; Z86.39 Personal history of other endocrine, nutritional and metabolic disease; G47.33 Obstructive sleep apnea (adult) (pediatric)

== ENCOUNTER → 2025-06-23 09:48 | Outpatient (BNVA) | payer OTHER, SELFPAY | PROVIDERS: PCP Internal Medicine; Visit Provider Internal Medicine | DX: Z00.01 Encounter for general adult medical examination with abnormal findings (principal); E66.811 Obesity, class 1; Z68.33 Body mass index [BMI] 33.0-33.9, adult; F41.1 Generalized anxiety disorder; E78.2 Mixed hyperlipidemia; G47.33 Obstructive sleep apnea (adult) (pediatric); Z86.39 Personal history of other endocrine, nutritional and metabolic disease; Z79.899 Other long term (current) drug therapy; Z13.31 Encounter for screening for depression | CPT/HCPCS: 96127 ==

== ENCOUNTER 2025-08-23 07:03 | Outpatient (REF) | payer OTHER, SELFPAY ==
--- OUTSIDE RECORDS SUMMARY | 2025-08-23 07:07 | XMS_ITS | Clinical Summary ---
Author Organization [facility] Address [address] [address] Phone Care Team Providers Care Manager Data Warehouse Name Role Phone Holly Castillo MD Primary [...] Td,Tdap Booster 09/15/2022 09/15/2012 , 09/27/2009, 01/21/2001 INFLUENZA VACCINE (#1) 2025 , 05/31/2021, 07/13/2020 [...] topic Medical Devices Not on file Insurance [facility] [id number] [place] [address] Care Teams Manager Data Warehouse Relationship Specialty Start Date End Date Holly Castillo MD [facility] [place] [id number] PCP - General Internal Medicine 09/27/20 Additional Source Comments The information contained in this document represents components of the legal health record. It is not the complete legal health record.[facility]
--- OUTSIDE RECORDS SUMMARY | 2025-08-23 07:07 | XMS_ITS | Clinical Summary ---
Author Organization [facility] Address [address] [place] [phone] Phone Care Team Providers Care Laundry Aide Name Role Phone Unavailable Primary Care Provider [...]
--- OUTSIDE RECORDS SUMMARY | 2025-08-23 07:07 | XMS_ITS | Encounter Summary ---
Author Organization [facility] Address [address] [place] [phone] Phone Care Team Providers Care Maintenance Team Member Name Role Phone Jeannie Greer MD Primary Care Provider Encounter Details Date Type Department Care Team (Late st Contact Info) Description 05/01/2017 Conversion Encounter [facility] [place] [address] [place] [address] Social History Tobacco Use Types Packs/Day Years [...] on filedocumented in this encounter Care Teams Maintenance Team Member Relationship Specialty Start Date End Date Jeannie Greer MD [address] [place] [address] PCP - General 04/25/17 01/05/23 documented as of this encounter
[2025-08-26 03:39] LABS: TS Negative Control Passed; TS Panel A 0; TS Panel B 1; TS Positive Control Passed; TSpotTB Negative (Negative)
== END 2025-08-23 07:04 | disposition home or self-care (01) ==
LOC: HO.HMGCLDS 07:03
PROVIDERS: PCP Internal Medicine; Visit Provider Internal Medicine
DX: Z11.1 Encounter for screening for respiratory tuberculosis (principal)
CPT/HCPCS: 36415; 86481

== ENCOUNTER 2025-08-25 11:12 | Outpatient (AMB) | payer OTHER, SELFPAY ==
[2025-08-25 11:15] VITALS: BP 90/60; PULSE 85; TEMP 36.9; O2SAT 97; BMI 33.4
--- NOTE | 2025-08-25 11:15 | A.OFFPC_ITS ---
Vital Signs 08/25/25 11:15 Height 5 ft 1 in Weight 177 lb BMI 33.4 BP 90/60 Blood Pressure Location Rt brachial Position Sitting Pulse 85 Pulse Source Pulse Oximeter Temp 98.4 F Temp Source Oral Pulse Oximetry (%) 97 Oxygen Delivery Method Room Air Intake Visit Reasons: medication review/weigh in Intake Note: Pt is here today for a med review/weigh in [place] Required: No Allergies No Known Allergies Allergy (Verified 08/25/25 11:29) Medication List - Last Reconciled 08/25/25 by Holly Castillo MD escitalopram oxalate 10 mg PO DAILY escitalopram oxalate 20 mg PO DAILY tirzepatide 5 mg (0.5 mL) subcut QWEEK Tobacco use date assessed: 08/25/25 Dental Screening Dental Screen Date: 08/25/25 Did you have a dental visit in the last 12 months?: Yes Did you have a dental problem in the last 6 months where you did not have access to dental care?: No Was dental information given to patient?: Patient has dentist HPI HPI Comments History of Present Illness Details The patient is a 34-year-old female presenting for a follow-up visit for weight management, and to obtain medical clearance for new employment. She has been using Mounjaro for weight loss, and previously used Wegovy, on which she reached the highest dose. She reports feeling well on Mounjaro but notes she is currently on the second to highest dose and has been experiencing cravings for carbohydrates and sweets, specifically bread and ice cream. The patient's insurance will stop covering the medication starting September 15. For employment purposes, the patient recently had a blood test for tuberculosis screening, and the results are pending. She is changing jobs from one longterm to another at [employer] and requires medical clearance. [facility] Medical History Obesity (BMI 30.0-34.9) History of vitamin D deficiency Restless leg syndrome Mild obstructive sleep apnea Sleeping difficulty Snoring Excessive daytime sleepiness Mixed dyslipidemia IBS (irritable bowel syndrome) Generalized anxiety disorder Surgical History [place] teeth extracted Family History Paternal Grandmother Substance use disorder Father Crohn's disease Mother Uterine cancer Social History Housing: House Alcohol intake: current Alcohol intake frequency: holidays/special occasions only Patient Tobacco Use Status: Never used Tobacco e-Cigarette/Vaping Use: Never Used service: No Current occupational status: employed Cognitive needs: No Hearing needs: No Vision needs: No Questionnaire PHQ-9 Over the last 2 weeks, how often have you been bothered by any of the following problems? Depression Screening Interpretation: Negative Depression Screening Done: Yes Source: Developed by Drs. Dorian Burns, Cuca Costello, Kye Loyola and colleagues, with an educational ruth from [employer]. Thrive Questionnaire Date Thrive assessed: 12/06/24 I am a: Patient What is your living situation today?: I have a steady place to live Within the past 12 months, did the food you bought not last and you didn't have the money to get more?: Never true Within the past 12 months, did you worry whether your food would run out before you got money to buy more?: Never true Do you have trouble paying for medicines?: No Do you have trouble getting transportation to medical appointments?: No Do you have trouble paying your heating and electricity bill?: No Do you have trouble taking care of your child, family member or friend?: No Do you have trouble with day-to-day activities such as bathing, preparing meals, shopping, managing finances, etc.?: No Are you currently unemployed and looking for a job?: No Are you interested in more education?: No Please select the resources that you would like help with: None Currently or been in a relationship where the following occur: No concerns reported THRIVE Score: 0 AUDIT C Alcohol Use Questionnaire (AUDIT-C) 1. How often do you have a drink containing alcohol?: Monthly or less 2. How many drinks containing alcohol do you have on a typical day when you are drinking?: 1 or 2 3. How often do you have six or more drinks on one occasion?: Never Total Score: 1 RAMO-7 AMB Questionnaire RAMO-7 Date RAMO - 7 assessed: 12/14/24 Source: Developed by Cuca ElizabethW. Pravin, Kye Loyola and colleagues, with an educational ruth from [employer]. Review of Systems Narrative Review of Systems - Constitutional: Denies fever. - HEENT: Occasional rhinorrhea. - Respiratory: No additional complaints. - Endocrine: Reports new cravings for carbohydrates and sweets while on Mounjaro. Constitution Reports no additional complaints Eyes no change in vision ENT Reports no additional complaints, Denies dysphagia and Denies odynophagia Cardiology Reports no additional complaints Respiratory Reports no additional complaints GI Denies abdominal pain, Denies belching, Denies melena, Denies bloating, Denies change in bowel habits, Denies dysphagia, Denies excessive flatus, Denies dyspepsia, Denies heartburn, Denies diarrhea, Denies loose stools, Denies nausea, Denies odynophagia and Denies vomiting Reports no additional complaints Muscular no additional complaints Skin/Breast Denies breast swelling, Denies breast pain, Denies breast mass and Denies rash Neurology Reports no additional complaints, Denies Abnormal speech present and Denies Sensory deficit (Neuro) Psychiatry Reports no additional complaints Endocrine Reports no additional complaints Mariano/Lymph Reports no additional complaints Aller/Immun Reports no additional complaints Physical exam (Primary Care) Vital Signs: Last Vital Signs Temp 98.4 F 08/25/25 11:15 Pulse 85 08/25/25 11:15 BP 90/60 08/25/25 11:15 Pulse Ox 97 08/25/25 11:15 Oxygen Delivery Method Room Air 08/25/25 11:15 BMI result Body Mass Index 33.4 Tobacco/Smoking Status: Tobacco use Status Tobacco use date assessed 08/25/25 08/25/25 11:23 Patient Tobacco Use Status Never used Tobacco 08/25/25 11:23 e-Cigarette/Vaping Use Never Used 08/25/25 11:23 Depression Screening Interpretation: Negative Thrive Assessment: Date of Thrive Assessment Date Thrive assessed 12/06/24 08/25/25 11:23 Currently or been in a relationship where the following occur: No concerns reported Const General: no acute distress and alert Nutritional Appearance: obese Orientation/consciousness: patient oriented x3 HENMT Head: Yes normocephalic General nose exam: Normal external nose present and Normal nares present Mouth: Normal oral and palatal mucosa present, oropharynx normal and moist mucous membranes Eyes General: appearance normal, both eyes and all related structures Neck Neck: Yes full ROM, Yes no lymphadenopathy and Yes supple Chest Breast/axilla palpation: normal palpation of the breasts Resp Auscultation: clear to auscultation bilaterally Cardio Other: S1-S2 present regular rate and rhythm GI Inspection: Yes normal to inspection Palpation (GI): Soft to palpation, nontender and no masses General: Yes no CVA tenderness Back/Spine/Pelvis Back: no CVA tenderness and No back tenderness Skin General skin exam: no rashes or lesions noted Neuro General: patient oriented x3 Extrem General: Yes full ROM, Yes no joint enlargement, Yes no clubbing, cyanosis or edema and Yes normal gait Psych Appearance: grossly normal and well kempt Mental Status: mental status grossly normal Speech and movement: Normal speech and movement present Affect: normal affect Office Procedures Flu Questionnaire Does the patient have a severe egg allergy?: No Does the patient have severe life threatening allergies?: No Does the patient have a fever or illness today?: No Has the patient ever had Guillain-Levelland Syndrome?: No Has the patient ever had any past reaction to a flu shot?: No Immunizations Fluarix [id number] (PF) 45 mcg (15 mcg x 3)/0.5 mL IM syringe Performing Provider: Holly Castillo MD Performing Location: [facility] Administered by: Stu Olmstead CMA on 08/25/25 11:52 Dose Route Admin Location Dispensed Lot Number Expiration Date ND Machine Clerical Verifier 0.5 mL IM Left Deltoid 0.5 mL [id number] 03/14/26 [id number] [employer] VIS Given Date VIS Provided VIS Publication Date 08/25/25 Single Vaccine 24 Eligibility Eligibility Date Funding Source Not [facility] Eligible 08/25/25 Private Coding Level of Care Code Est Pt Level 4 (78263) Diagnoses Obesity (BMI 30.0-34.9) E66.811 Generalized anxiety disorder F41.1 Assessment & Plan Assessment & Plan (1) Obesity (BMI 30.0-34.9): Code(s): E66.811 - Obesity, class 1 Category: Medical Plan: Weight has plateaued, still taking tirzepatide but now dose increased to 7.5 mg subcutaneously. continue adhering to recommended diet and getting exercise patient advised that her insurance. Advised that insurance will stop covering any GLP 1 agonist for weight loss starting September 2025, advised to explore other weight loss program available online, and continue with the adherence to recommended diet and getting regular exercise, (2) Generalized anxiety disorder: Code(s): F41.1 - Generalized anxiety disorder Category: Medical Plan: Continue escitalopram 30 mg daily, see me back for follow-up in 2025 Plan Medical Clearance for Employment The patient is changing jobs and requires medical clearance. The necessary paperwork was signed and provided to her. She had a recent blood test for TB screening for employment. The results are currently pending The patient has a physical scheduled for next June. Advised to make an appointment sooner if needed. Patient was informed and verbally consented to the use of an ambient scribe for clinic note documentation during this visit. Orders: Orders Influenza [id number] Immunization 08/25/25 Z23 - Encounter for immunization Medications: Changed From tirzepatide for 4 weeks 5 mg (0.5 mL) subcut QWEEK 2 mL 1RF E66.811 - Obesity, class 1, G47.33 - Obstructive sleep apnea (adult) (pediatric) To tirzepatide for 4 weeks 7.5 mg (0.5 mL) subcut QWEEK 2 mL 1RF E66.811 - Obesity, class 1, G47.33 - Obstructive sleep apnea (adult) (pediatric)
== END 2025-08-25 13:01 | disposition home or self-care (01) ==
LOC: HO.HMCC 11:13
PROVIDERS: PCP Internal Medicine; Visit Provider Internal Medicine
DX: Z23 Encounter for immunization (principal)

== ENCOUNTER → 2025-08-25 11:12 | Outpatient (BNVA) | payer OTHER, SELFPAY | PROVIDERS: PCP Internal Medicine; Visit Provider Internal Medicine | DX: Z23 Encounter for immunization (principal) | CPT/HCPCS: 90471; 90656 ==